=== PATIENT | female | born 1930 | race African-American/Black ===

== ENCOUNTER 2017-10-26 16:26 | Inpatient (IN) | payer OTHER ==
[2017-10-26 18:01] LABS: Absolute Lymphocytes (CBC) 1.7 K/uL (0.7-4.9); Absolute Monocytes 0.8 K/uL (0.1-1.3); Absolute Neutrophil 3.3 K/uL (1.8-8.0); Basophils % 0.7 % (0-1.3); Hematocrit 23.6 % (36.0-45.0); Lymphocytes % 28.5 % (15.3-44.8); MCH 30.3 pg (27.0-35.0); MCV 93.1 fL (80-100); MPV 10.4 fL (7.6-11.3); Monocytes % 13.8 % (3.3-12.3); RBC Red Blood Cell Count 2.54 M/uL (3.86-4.86)
--- NOTE | 2017-10-26 18:02 | EDPHYS ---
Physician Documentation [facility] Name: Ernesto Chambers Age: 87 yrs Sex: Female : 1930 Arrival Date: 10/26/2017 Time: 16:27 Bed 6 Private MD: Enrike Renae ED Physician Juarez Montiel HPI: 10/26 17:19 This 87 yrs old Black Female presents to ER via EMS with complaints of Cough. holger 17:19 The patient or guardian reports cough, difficulty breathing. Onset: The holger symptoms/episode began/occurred 3 day(s) ago. Severity of symptoms: At their worst the symptoms were mild, moderate, in the emergency department the symptoms are unchanged. Modifying factors: The symptoms are alleviated by nothing, the symptoms are aggravated by nothing. Associated signs and symptoms: Pertinent positives: fever, rhinorrhea, sore throat. The patient has not experienced similar symptoms in the past. Historical: - Allergies: 16:35 Lisinopril; sg - Home Meds: 17:44 aspirin 81 mg Oral chew 1 tab once daily [Active]; atorvastatin 20 mg oral tab 1 tab sg once daily [Active]; carvedilol 6.25 mg oral tab 1 tab every 12 hours [Active]; cholecalciferol (vitamin D3)-vitamin K2 (MK4) oral oral daily [Active]; Colace 100 mg oral cap 1 cap once daily [Active]; Coumadin 1 mg Oral tab 1 tab once daily [Active]; Coumadin 2.5 mg Oral tab 1 tab once daily [Active]; furosemide 40 mg Oral tab 1 tab 3 times per day [Active]; lactulose 20 gram/30 mL Oral soln [Active]; 19:52 levothyroxine 50 mcg tab 1 tab once daily [Active]; loratadine 10 mg oral tab 1 tab sg once daily [Active]; losartan potassium 50 mg twice a day [Active]; magnesium oxide 400 mg oral tab 400 mg daily [Active]; Milk of Magnesia 400 mg/5 mL Oral susp 30 mL every 6 hours for Constipation [Active]; Miralax 17 gram Oral pwpk 1 packet once daily [Active]; Mucinex 600 mg oral Ta12 1 tab every 12 hours [Active]; potassium chloride 20 mEq Oral TbER 1 tab 2 times per day [Active]; Protonix 40 mg oral TbEC 1 tab once daily [Active]; Tussionex Pennkinetic ER 10-100mg/5 mL Oral 10 mL every 4 hours [Active]; acetaminophen 325 mg Oral tab 2 tabs every 6 hours [Active]; Vitamin B-12 100 mcg Oral tab 100 mcg daily [Active]; - PMHx: 16:35 Anemia; Arthritis; chronic kidney disease; Hyperlipidemia; Hypertension; sg Hypothyroidism; ventricular tachycardia; - Immunization history:: Adult Immunizations up to date. - Social history:: Smoking status: unknown. ROS: 17:20 Constitutional: Negative for fever, chills, and weight loss, Eyes: Negative for injury, holger pain, redness, and discharge, ENT: Negative for injury, pain, and discharge, Neck: Negative for injury, pain, and swelling, Cardiovascular: Negative for chest pain, palpitations, and edema, Abdomen/GI: Negative for abdominal pain, nausea, vomiting, diarrhea, and constipation, Back: Negative for injury and pain, : Negative for injury, bleeding, discharge, and swelling, MS/Extremity: Negative for injury and deformity, Skin: Negative for injury, rash, and discoloration, Neuro: Negative for headache, weakness, numbness, tingling, and seizure, Psych: Negative for depression, anxiety, suicide ideation, homicidal ideation, and hallucinations, Allergy/Immunology: Negative for hives, rash, and allergies, Endocrine: Negative for neck swelling, polydipsia, polyuria, polyphagia, and marked weight changes, Hematologic/Lymphatic: Negative for swollen nodes, abnormal bleeding, and unusual bruising. 17:20 Respiratory: Positive for cough, shortness of breath, at rest. Exam: 17:20 Constitutional: This is a well developed, well nourished patient who is awake, alert, holger and in no acute distress. Head/Face: Normocephalic, atraumatic. Eyes: Pupils equal round and reactive to light, extra-ocular motions intact. Lids and lashes normal. Conjunctiva and sclera are non-icteric and not injected. Cornea within normal limits. Periorbital areas with no swelling, redness, or edema. ENT: Nares patent. No nasal discharge, no septal abnormalities noted. Tympanic membranes are normal and external auditory canals are clear. Oropharynx with no redness, swelling, or masses, exudates, or evidence of obstruction, uvula midline. Mucous membranes moist. Neck: Trachea midline, no thyromegaly or masses palpated, and no cervical lymphadenopathy. Supple, full range of motion without nuchal rigidity, or vertebral point tenderness. No Meningismus. Chest/axilla: Normal chest wall appearance and motion. Nontender with no deformity. No lesions are appreciated. Cardiovascular: Regular rate and rhythm with a normal S1 and S2. No gallops, murmurs, or rubs. Normal PMI, no JVD. No pulse deficits. Abdomen/GI: Soft, non-tender, with normal bowel sounds. No distension or tympany. No guarding or rebound. No evidence of tenderness throughout. Back: No spinal tenderness. No costovertebral tenderness. Full range of motion. Skin: Warm, dry with normal turgor. Normal color with no rashes, no lesions, and no evidence of cellulitis. 17:20 Respiratory: mild respiratory distress is noted, Respirations: normal, no acute changes, Breath sounds: decreased breath sounds, rhonchi, wheezing: inspiratory expiratory Vital Signs: 16:32 BP 144 / 108; Pulse 58 MON; Resp 17 S; Pulse Ox 100% on R/A; Pain 8/10; sg 16:35 Temp 99.3; sg 17:40 BP 128 / 70; Pulse 60; Resp 17; Temp 99.3; Pulse Ox 99% on R/A; Pain 0/10; sg 18:40 BP 112 / 77; Pulse 60; Resp 18 S; Pulse Ox 100% on R/A; Pain 0/10; sg 19:30 BP 108 / 77; Pulse 62; Resp 17; Pulse Ox 100% ; Pain 0/10; tl1 19:55 Temp 98.2; tl1 Procedures: 17:23 Peripheral line: by aseptic technique a peripheral line was placed in the left external holger jugular vein. MDM: 16:35 Patient medically screened. [facility] 17:23 Data reviewed: vital signs, nurses notes, lab test result(s), EKG, radiologic studies, [facility] plain films. 10/26 16:37 Order name: Basic Metabolic Panel [facility] 10/26 16:37 Order name: BNP [facility] 10/26 16:37 Order name: CBC with Diff; Complete Time: 18:22 [facility] 10/26 16:37 Order name: Ckmb [facility] 10/26 16:37 Order name: CPK [facility] 10/26 16:37 Order name: LFT's [facility] 10/26 16:37 Order name: Magnesium [facility] 10/26 16:37 Order name: PT-INR [facility] 10/26 16:37 Order name: Ptt, Activated [facility] 10/26 16:37 Order name: Troponin (emerg Dept Use Only) [facility] 10/26 16:37 Order name: Lipase [facility] 10/26 16:37 Order name: Blood Culture Adult (2) [facility] 10/26 16:37 Order name: Procalcitonin [facility] 10/26 16:37 Order name: Flu; Complete Time: 18:22 [facility] 10/26 16:37 Order name: XRAY Chest (1 view); Complete Time: 18:12 [facility] 10/26 16:37 Order name: EKG; Complete Time: 16:38 [facility] 10/26 16:37 Order name: Cardiac monitoring; Complete Time: 17:28 [facility] 10/26 16:37 Order name: EKG - Nurse/Tech; Complete Time: 19:44 [facility] 10/26 16:37 Order name: IV Saline Lock; Complete Time: 17:28 [facility] 10/26 16:37 Order name: Labs collected and sent; Complete Time: 17:28 [facility] 10/26 16:37 Order name: Urine Culture [facility] 10/26 16:37 Order name: Sputum Culture [facility] 10/26 16:37 Order name: Basic Metabolic Panel [facility]DC 10/26 18:14 Order name: Type And Screen [facility] 10/26 20:37 Order name: Type and Screen [facility] 10/26 16:37 Order name: O2 Per Protocol; Complete Time: 17:28 [facility] 10/26 16:37 Order name: O2 Sat Monitoring; Complete Time: 17:28 [facility] 10/26 17:24 Order name: Toure; Complete Time: 19:30 [facility] Administered Medications: 19:00 Drug: Tylenol 650 mg Route: PO; sg 19:56 Follow up: Response: No adverse reaction tl1 19:00 Drug: Rocephin - (cefTRIAXone) 2 grams Route: IVPB; Infused Over: 30 mins; Site: right sg forearm; 19:15 Follow up: Response: No adverse reaction; IV Status: Completed infusion; medication sg administered slow IVP as per hospital protocol 19:15 Drug: Zithromax 500 mg Route: IVPB; Infused Over: 1 hrs; Site: right forearm; sg 19:56 Follow up: IV Status: Infusion continued upon admission tl1 19:45 Drug: Lasix 40 mg Route: IVP; Infused Over: 4 mins; Site: left jugular; tl1 19:56 Follow up: Response: No adverse reaction; No change in condition tl1 19:45 Drug: ProTONIX 40 mg Route: IVP; Infused Over: 3 mins; Site: left jugular; tl1 19:56 Follow up: Response: No adverse reaction; No change in condition tl1 Disposition: 10/26/17 18:01 Hospitalization ordered by Ming Leggett for Inpatient Admission. Preliminary diagnosis are Cough, Dyspnea, Obesity, unspecified, Cardiomegaly, Unspecified combined systolic (congestive) and diastolic (congestive) heart failure, Anemia, unspecified, Pneumonia due to other specified bacteria, Unspecified kidney failure. - Bed requested for Telemetry/MedSurg (Inpatient). - Status is Inpatient Admission. ao - Condition is Fair. - Problem is new. - Symptoms have improved. UTI on Admission? Yes Signatures: Dispatcher [employer] EDMS Morena Mendoza Steven, RN RN sg Anderson, Corey, MD MD cha Lasagna, Tonya, RN RN tl1 Jose Gutierrez RN RN ao Corrections: (The following items were deleted from the chart) 18:13 18:01 Hospitalization Ordered by Ming Leggett DO for Inpatient Admission. Preliminary holger diagnosis is Cough; Dyspnea; Obesity, unspecified; Cardiomegaly; Unspecified combined systolic (congestive) and diastolic (congestive) heart failure. Bed requested for Telemetry/MedSurg (Inpatient). Status is Inpatient Admission. Condition is Fair. Problem is new. Symptoms have improved. UTI on Admission? Yes. holger 18:14 18:13 10/26/2017 18:01 Hospitalization Ordered by Ming Leggett DO for Inpatient holger Admission. Preliminary diagnosis is Cough; Dyspnea; Obesity, unspecified; Cardiomegaly; Unspecified combined systolic (congestive) and diastolic (congestive) heart failure; Anemia, unspecified. Bed requested for Telemetry/MedSurg (Inpatient). Status is Inpatient Admission. Condition is Fair. Problem is new. Symptoms have improved. UTI on Admission? Yes. holger 18:43 18:14 10/26/2017 18:01 Hospitalization Ordered by Ming Leggett DO for Inpatient bd Admission. Preliminary diagnosis is Cough; Dyspnea; Obesity, unspecified; Cardiomegaly; Unspecified combined systolic (congestive) and diastolic (congestive) heart failure; Anemia, unspecified; Pneumonia due to other specified bacteria. Bed requested for Telemetry/MedSurg (Inpatient). Status is Inpatient Admission. Condition is Fair. Problem is new. Symptoms have improved. UTI on Admission? Yes. holger 19:01 18:43 10/26/2017 18:01 Hospitalization Ordered by Ming Leggett DO for Inpatient holger Admission. Preliminary diagnosis is Cough; Dyspnea; Obesity, unspecified; Cardiomegaly; Unspecified combined systolic (congestive) and diastolic (congestive) heart failure; Anemia, unspecified; Pneumonia due to other specified bacteria. Bed requested for Telemetry/MedSurg (Inpatient). Status is Inpatient Admission. Condition is Fair. Problem is new. Symptoms have improved. UTI on Admission? Yes. bd 20:42 19:01 10/26/2017 18:01 Hospitalization Ordered by Ming Legegtt DO for Inpatient ao Admission. Preliminary diagnosis is Cough; Dyspnea; Obesity, unspecified; Cardiomegaly; Unspecified combined systolic (congestive) and diastolic (congestive) heart failure; Anemia, unspecified; Pneumonia due to other specified bacteria; Unspecified kidney failure. Bed requested for Telemetry/MedSurg (Inpatient). Status is Inpatient Admission. Condition is Fair. Problem is new. Symptoms have improved. UTI on Admission? Yes. holger
--- NOTE | 2017-10-26 18:02 | ER ---
Nurse's Notes [facility] Name: Ernesto Chambers Age: 87 yrs Sex: Female : 1930 Arrival Date: 10/26/2017 Time: 16:27 Bed 6 Private MD: Enrike Renae Diagnosis: Cough;Dyspnea;Obesity, unspecified;Cardiomegaly;Unspecified combined systolic (congestive) and diastolic (congestive) heart failure;Anemia, unspecified;Pneumonia due to other specified bacteria;Unspecified kidney failure Presentation: 10/26 16:29 Presenting complaint: EMS states: pt reports a cough for 2-3 days, xray report sg indicates infiltrate noted to right upper lobe, pt reports urinary frequency and malodorous urine for 2-3 days, pt is a resident of [facility]. Transition of care: patient was received from another setting of care (long-term care facility), [facility]. Onset of symptoms was October 26, 2017. Initial Sepsis Screen: Does the patient meet any 2 criteria? No. Patient's initial sepsis screen is negative. Does the patient have a suspected source of infection? Yes: Productive cough/pneumonia Dysuria/Frequency/Urgency/UTI. Care prior to arrival: None. 16:29 Method Of Arrival: EMS: [facility] 16:29 Acuity: VERITO 3 sg Historical: - Allergies: 16:35 Lisinopril; sg - Home Meds: 17:44 aspirin 81 mg Oral chew 1 tab once daily [Active]; atorvastatin 20 mg oral tab 1 tab sg once daily [Active]; carvedilol 6.25 mg oral tab 1 tab every 12 hours [Active]; cholecalciferol (vitamin D3)-vitamin K2 (MK4) oral oral daily [Active]; Colace 100 mg oral cap 1 cap once daily [Active]; Coumadin 1 mg Oral tab 1 tab once daily [Active]; Coumadin 2.5 mg Oral tab 1 tab once daily [Active]; furosemide 40 mg Oral tab 1 tab 3 times per day [Active]; lactulose 20 gram/30 mL Oral soln [Active]; 19:52 levothyroxine 50 mcg tab 1 tab once daily [Active]; loratadine 10 mg oral tab 1 tab sg once daily [Active]; losartan potassium 50 mg twice a day [Active]; magnesium oxide 400 mg oral tab 400 mg daily [Active]; Milk of Magnesia 400 mg/5 mL Oral susp 30 mL every 6 hours for Constipation [Active]; Miralax 17 gram Oral pwpk 1 packet once daily [Active]; Mucinex 600 mg oral Ta12 1 tab every 12 hours [Active]; potassium chloride 20 mEq Oral TbER 1 tab 2 times per day [Active]; Protonix 40 mg oral TbEC 1 tab once daily [Active]; Tussionex Pennkinetic ER 10-100mg/5 mL Oral 10 mL every 4 hours [Active]; acetaminophen 325 mg Oral tab 2 tabs every 6 hours [Active]; Vitamin B-12 100 mcg Oral tab 100 mcg daily [Active]; - PMHx: 16:35 Anemia; Arthritis; chronic kidney disease; Hyperlipidemia; Hypertension; sg Hypothyroidism; ventricular tachycardia; - Immunization history:: Adult Immunizations up to date. - Social history:: Smoking status: unknown. Screenin:40 Abuse screen: Denies threats or abuse. Denies injuries from another. Nutritional sg screening: No deficits noted. Tuberculosis screening: No symptoms or risk factors identified. Never had TB. Fall Risk No fall in past 12 months (0 pts). Mental Status- Overestimates/Forgets Limitations (15 pts.). Total Jonas Fall Scale indicates Low Risk Score (25-44 pts). Side Rails Up X 2 Placed close to Nursing Station Frequent Obs/Assesments occuring. Pneumonia Screening: Non.Productive Cough (2pts), Chronic Respiratory/Lung Disease (3pts), Bed-Ridden/Decreased Mobility (3pts), SALVADOR/NH Resident (2pts), Total Score: 3 Pts. or > (High Risk). Assessment: 16:40 General: Appears in no apparent distress. comfortable, obese, unkempt, well developed, sg well nourished, Behavior is cooperative, appropriate for age, Smells of urine. Pain: Complains of pain in suprapubic area Pain currently is 6 out of 10 on a pain scale. Quality of pain is described as crampy, Current management is with Tylenol, is partially effective. Neuro: Level of Consciousness is awake, obeys commands, confused, Oriented to person, place, Scientific Research Associate are equal bilaterally Speech is normal, Facial symmetry appears normal. Cardiovascular: Heart tones S1 S2 present Capillary refill is brisk in bilateral fingers Patient's skin is warm and dry. Chest pain is denied. Respiratory: Airway is patent Respiratory effort is even, unlabored, Respiratory pattern is regular, symmetrical, Breath sounds with crackles in left posterior lower lobe and right posterior middle lobe. Respiratory: Reports cough that is non-productive, hacking, persistent. GI: No signs and/or symptoms were reported involving the gastrointestinal system. : Reports incontinence, pain in suprapubic area urinary frequency. EENT: No signs and/or symptoms were reported regarding the EENT system. Derm: Skin is intact, is thin, Skin is dry, Skin is normal, Skin temperature is warm. Musculoskeletal: Circulation, motion, and sensation intact. Swelling absent. 17:40 Reassessment: Patient appears in no apparent distress at this time. 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 18:40 Reassessment: Patient appears in no apparent distress at this time. Patient and/or sg family updated on plan of care and expected duration. Pain level reassessed. Patient is alert, oriented x 3, equal unlabored respirations, skin warm/dry/pink. awaiting lab results at this time, pt stated understanding, pt daughter stated understanding, educated pt on the provider order for indwelling adkins cath, pt stated understanding, pt daughter states " she has a prolapsed uterus, and several providers have tried to insert the adkins with no success." notified, orders received for adkins placement at this time. 19:57 Reassessment: Patient and/or family updated on plan of care and expected duration. Pain tl1 level reassessed. Patient is alert, oriented x 3, equal unlabored respirations, skin warm/dry/pink. Report called to Nely JOEL. Vital Signs: 16:32 BP 144 / 108; Pulse 58 MON; Resp 17 S; Pulse Ox 100% on R/A; Pain 8/10; sg 16:35 Temp 99.3; sg 17:40 BP 128 / 70; Pulse 60; Resp 17; Temp 99.3; Pulse Ox 99% on R/A; Pain 0/10; sg 18:40 BP 112 / 77; Pulse 60; Resp 18 S; Pulse Ox 100% on R/A; Pain 0/10; sg 19:30 BP 108 / 77; Pulse 62; Resp 17; Pulse Ox 100% ; Pain 0/10; tl1 19:55 Temp 98.2; tl1 ED Course: 16:27 Patient arrived in ED. sg 16:29 Enrike Renae is Private Physician. sg 16:31 Triage completed. sg 16:31 Arm band placed on. sg 16:35 Juarez Montiel MD is Attending Physician. holger 17:00 Patient has correct armband on for positive identification. Bed in low position. Call sg light in reach. Side rails up X2. groundwater monitoring technician on. Pulse ox on. NIBP on. Head of bed elevated. 17:05 EKG done, by photovoltaic installation technician. reviewed by Juarez Montiel MD. at1 17:15 Inserted saline lock: 22 gauge in right forearm, using aseptic technique. Blood sg collected. IV inserted by military technology manager Mikey Dumont 17:27 Naren Ptahak, RN is Primary Nurse. sg 17:51 X-ray completed. Portable x-ray completed in exam room. Patient tolerated procedure kp1 well. 17:51 XRAY Chest (1 view) In Process Unspecified. EDDE 18:00 Ming Leggett DO is Hospitalizing Provider. [facility] 18:10 Inserted saline lock: 18 gauge in left EJ, using aseptic technique. IV inserted by sg . 18:11 Notified ED physician of a critical lab result(s). Hemoglobin 7.7. aa5 19:00 Repositioned patient. Cleaned of incontinence. Linen changed. sg 19:00 Adkins cath inserted, using sterile technique, 16 Fr., by me, balloon inflated, to sg gravity drainage, other no urine output noted at this time, pt reports " I just went pee a little bit ago." Patient tolerated well. 19:59 No provider procedures requiring assistance completed. Patient admitted, IV remains in tl1 place. 20:24 Primary Nurse role handed off by Naren Pathak, RN sg Administered Medications: 19:00 Drug: Tylenol 650 mg Route: PO; sg 19:56 Follow up: Response: No adverse reaction tl1 19:00 Drug: Rocephin - (cefTRIAXone) 2 grams Route: IVPB; Infused Over: 30 mins; Site: right sg forearm; 19:15 Follow up: Response: No adverse reaction; IV Status: Completed infusion; medication sg administered slow IVP as per hospital protocol 19:15 Drug: Zithromax 500 mg Route: IVPB; Infused Over: 1 hrs; Site: right forearm; sg 19:56 Follow up: IV Status: Infusion continued upon admission tl1 19:45 Drug: Lasix 40 mg Route: IVP; Infused Over: 4 mins; Site: left jugular; tl1 19:56 Follow up: Response: No adverse reaction; No change in condition tl1 19:45 Drug: ProTONIX 40 mg Route: IVP; Infused Over: 3 mins; Site: left jugular; tl1 19:56 Follow up: Response: No adverse reaction; No change in condition tl1 Intake: Outcome: 18:01 Decision to Hospitalize by Provider. holger 19:58 Admitted to Tele accompanied by tech, via stretcher, with chart, Report called to [facility] Nely JOEL 19:58 Condition: stable 19:58 Instructed on the need for admit, Demonstrated understanding of instructions. 20:42 Patient left the ED. ao Signatures: Dispatcher [employer] EDMS Naren Pathak RN RN sg Anderson, Corey, MD MD cha Calderon, Audri, RN RN Laurie ahnd, occupational therapist aide EKG Tat1 Priyanka Irvin RN RN tl1 Jose Gutierrez RN RN ao Poole, Kathy 1
[2017-10-26] MEDS ORDERED: AZITHROMYCIN 500 MG/250 ML BAG ONE (18:03)
[2017-10-26] MEDS ORDERED: CEFTRIAXONE/SWI 1gm 2 GM/20 ML SYR ONE (18:03)
[2017-10-26] MEDS ORDERED: ACETAMINOPHEN 325 MG TABLET ONE (18:04)
--- NOTE | 2017-10-26 18:05 | RAD REPORT ---
EXAM DESCRIPTION: RAD - Chest Single View - 10/26/2017 5:56 pm CLINICAL HISTORY: Cough, shortness of breath COMPARISON: 05/20/2017 FINDINGS: Portable technique limits examination quality. Mild interstitial pulmonary edema is noted. The heart is mildly enlarged in size. No displaced fractu res. IMPRESSION: Mild CHF versus volume overload pattern.
[2017-10-26 18:18] LABS: Potassium 4.3 mEq/L (3.6-5.0)
[2017-10-26 18:24] LABS: Albumin 3.3 g/dL (3.2-5.5); Bilirubin Direct 0.1 mg/dL (0-0.2); Bilirubin Total 0.5 mg/dL (0.3-1.2); Magnesium 2.3 mg/dL (1.8-2.5); Protein, Total 7.5 g/dL (6.0-8.3)
[2017-10-26] MEDS ORDERED: ACETAMINOPHEN 500 MG TAB PO PRN (18:30)
[2017-10-26] MEDS ORDERED: ACETAMINOPHEN 650MG/RECT SUPP PR PRN (18:30)
[2017-10-26] MEDS ORDERED: ONDANSETRON 4 MG/2 ML VIAL IV PRN (18:30)
--- NOTE | 2017-10-26 18:43 | P.HP ---
Certification for Inpatient Patient admitted to: Inpatient With expected LOS: >2 Midnights Patient will require the following post-hospital care: Other Practitioner: I am a practitioner with admitting privileges, knowledge of patient current condition, hospital course, and medical plan of care. Services: Services provided to patient in accordance with Admission requirements found in Title 42 Section 412.3 of the Code of Federal Regulations Patient History Date of Service: 10/26/17 Primary Care Provider: care home; Nephrology-Dr. Jamison Reason for admission: Shortness of breath, cough History of Present Illness: 87-year-old female presented to the ER with shortness of breath and cough. Patient has noticed increasing shortness of breath and cough over the last 2 days. She denies any fever, chills. Cough is not productive. Patient denies any chest pain Patient reports some mild edema to the lower extremities. Patient has history of diastolic congestive heart failure, anemia of chronic disease, chronic renal disease, hypertension, hypothyroidism, mild aortic stenosis. Fluids have been [facility] at the detention. She is taking diuretic therapy. She also takes Coumadin for history of DVT. Patient was sent to the ER for further evaluation. In the of the patient was evaluated. Hemoglobin 7.7, white count 6.0. Sodium 148 com potassium 4.3, BUN of 52, creatinine 2.2 with a GFR of 25. Glucose 93. Chest x-ray showed volume overload. Influenza test negative. Due to nature of her findings the patient was admitted for further evaluation and treatment. In the ER the patient had a productive cough. She did not appear in any significant distress. Room-air saturations were about 100% on room air. Patient was slightly edematous. Family-1st cousin was at bedside. Allergies lisinopril Allergy (Verified 05/19/17 14:21) Shortness of breath Home medications list reviewed: Yes Home Medications: Acetaminophen [Tylenol] 1 tab PO Q6HR PRN 05/19/17 Aspirin [Low Dose Aspirin EC] 81 mg PO DAILY 05/19/17 Cyanocobalamin (Vitamin B-12) [Vitamin B-12] 100 mcg PO DAILY 05/19/17 Levothyroxine Sodium 50 mcg PO DAILY 05/19/17 Lubiprostone [Amitiza*] 1 cap PO BID 05/19/17 Polyethylene Glycol 3350 [Miralax] 17 gm PO DAILY 05/19/17 Potassium Oral Tab [Klor-Con 10 mEq Tab*] 1 tab PO DAILY 05/19/17 Albuterol Neb [Proventil 0.083% Neb Soln] 2.5 mg NEB [id number] #30 amp 05/24/17 Atorvastatin Calcium [Lipitor*] 20 mg PO BEDTIME #30 tab 05/24/17 Carvedilol [Coreg*] 6.25 mg PO BID #60 tab 05/24/17 Cholecalciferol (Vitamin D3) [Vitamin D 5,000 IU Cap*] 5,000 unit PO DAILY #30 cap 05/24/17 Ipratropium Neb [Atrovent*] 0.5 mg NEB [id number] #30 amp 05/24/17 Levothyroxine [Synthroid*] 0.05 mg PO [id number] #30 tablet 05/24/17 Losartan Potassium [Cozaar*] 50 mg PO BID #60 tablet 05/24/17 Magnesium Oxide [Mag 0X*] 400 mg PO BID #60 tab 05/24/17 Pantoprazole [Protonix Tab*] 40 mg PO DAILYAC #30 tab 05/24/17 Warfarin Sodium [Coumadin] 3 mg PO DAILY #30 tablet 05/24/17 Furosemide [Lasix] 40 mg PO BIDL #60 tab 05/29/17 - Past Medical/Surgical History Diabetic: No -: Hypertension -: CHF, diastolic dysfunction -: Chronic renal disease -: Anemia of chronic disease -: Hypothyroidism -: Chronic thrombosis right lower leg -: Chronic anti coagulation-Coumadin -: Former tobacco use -: Chronic constipation -: Mild aortic stenosis -: Pre diabetes -: Back surgery Psychosocial/ Personal History: The patient currently lives at a detention. She was living alone at home. Patient does not have any children. She is a . - Family History Father -: Hypertension, Kidney disease - Social History Smoking Status: Former smoker Alcohol use: No CD- Drugs: No Caffeine use: Yes Place of Residence: Shelter Review of Systems General: As per HPI Eyes: Unremarkable ENT: Unremarkable Respiratory: Cough, Shortness of Breath, SOB with Excertion, As per HPI Cardiovascular: Edema, As per HPI Gastrointestinal: Unremarkable Genitourinary: Unremarkable Musculoskeletal: Unremarkable Integumentary: Unremarkable Neurological: Unremarkable Lymphatics: Unremarkable Physical Examination - Physical Exam General: Alert, In no apparent distress, Oriented x3, Cooperative HEENT: Atraumatic, Normocephalic, PERRLA, Other (Mild erythema to the oral region) Neck: Supple, No Thyromegaly Respiratory: Crackles/rales (Bilateral) Cardiovascular: Normal pulses, Regular rate/rhythm Gastrointestinal: Normal bowel sounds, Soft and benign, Non-distended, No tenderness, No masses, No rebound, No guarding Musculoskeletal: No erythema, No tenderness, No warmth Integumentary: No erythema, No warmth, No cyanosis, Tenderness/swelling (Mild pitting edema to the lower extremities bilateral) Neurological: Normal speech, Normal strength at 5/5 x4 extr, Normal tone, Normal affect Lymphatics: No axilla or inguinal lymphadenopathy - Studies Laboratory Data (last 24 hrs) 10/26/17 17:20: WBC 6.0, Hgb 7.7 L*, Hct 23.6 L, Plt Count 175 10/26/17 17:20: Sodium 148 H, Potassium 4.3, BUN 52 H, Creatinine 2.27 H, Glucose 93, Magnesium 2.3, Total Bilirubin 0.5, AST 17, ALT 12, Alkaline Phosphatase 77, Lipase 13 L Microbiology Data (last 24 hrs): 10/26/17 17:48 Nasopharnyx Influenza Type A Antigen Screen - Final 10/26/17 17:48 Nasopharnyx Influenza Type B Antigen Screen - Final Assessment and Plan - Problems (Diagnosis) (1) Hyperlipidemia Current Visit: Yes Status: Chronic Plan: Will continue with her medication. Qualifiers: Hyperlipidemia type: unspecified Qualified Code(s): E78.5 - Hyperlipidemia , unspecified (2) CHF (congestive heart failure) Onset Date: 05/22/17 Current Visit: No Status: Acute Plan: X-ray shows volume overload. Likely acute on chronic diastolic dysfunction. Previous echocardiogram shows also mild aortic stenosis. Will start IV Lasix 40 mg b.i.d.. Will continue with a 1500 cc per day fluid restriction. Will recheck echocardiogram. Will monitor closely. Qualifiers: Heart failure type: diastolic Heart failure chronicity: acute on chronic Qualified Code(s): I50.33 - Acute on chronic diastolic (congestive) heart failure (3) Chronic renal disease Onset Date: 05/22/17 Current Visit: No Status: Acute Plan: Acute on chronic renal disease. Nephrology will be consulted. Patient with mild hypernatremic. Will discuss with nephrology. Patient will be getting diuretic therapy due to congestive heart failure. Qualifiers: Chronic kidney disease stage: stage 3 (moderate) (4) Dyspnea Onset Date: 05/22/17 Current Visit: No Status: Acute Plan: Likely from fluid overload. Will continue as above. Will order echocardiogram to further assess previous CHF and aortic stenosis. Qualifiers: (5) Anemia Onset Date: 05/22/17 Current Visit: No Status: Chronic Plan: Patient with anemia of chronic disease likely from renal disease. Patient also with B12 deficiency. Will monitor hemoglobin closely. Patient may require transfusion if less than 7.0. Qualifiers: Anemia type: due to chronic kidney disease Chronic kidney disease stage: stage 3 (moderate) Qualified Code(s): N18.3 - Chronic kidney disease, stage 3 (moderate); D63.1 - Anemia in chronic kidney disease (6) Chronic anticoagulation Onset Date: 05/22/17 Current Visit: No Status: Chronic Plan: Will need to verify Coumadin medication. Patient taking chronic anti coagulation therapy due to previous DVT. (7) History of DVT (deep vein thrombosis) Onset Date: 05/22/17 Current Visit: No Status: Chronic Plan: Will need to continue with her medication. (8) Hypothyroidism Onset Date: 05/22/17 Current Visit: No Status: Chronic Plan: Will continue with her medication. Will check tsh. Qualifiers: (9) Obesity Onset Date: 05/22/17 Current Visit: No Status: Chronic Plan: Will address lifestyle modification education. Qualifiers: (10) Aortic stenosis Current Visit: Yes Status: Acute Plan: Previous echocardiogram shows mild aortic stenosis. Will recheck echocardiogram to further evaluate. Qualifiers: Cardiac valve disease etiology: etiology unspecified Qualified Code(s): I35.0 - Nonrheumatic aortic (valve) stenosis (11) Hypernatremia Current Visit: Yes Status: Acute Plan: Will have nephrology evaluate. Discharge Plan: Shelter Plan to discharge in: Greater than 2 days - Advance Directives Does patient have a Living Will: No Does patient have a Durable POA for Healthcare: No - Code Status/Comfort Care Code Status Assessed: Yes (This was addressed in detail with family present) Time Spent Managing Pts Care (In Minutes): 55
[2017-10-26] MEDS ORDERED: PANTOPRAZOLE 40 MG INJ ONE (19:32)
[2017-10-26] MEDS ORDERED: FUROSEMIDE 40 MG/4 ML VIAL ONE (19:32)
[2017-10-26 19:59] LABS: Protime INR 3.94
[2017-10-26 20:05] LABS: CKMB Creatine Kinase MB 1.2 ng/ml (0.3-4.0)
[2017-10-26] MEDS: ATORVASTATIN 20 MG TAB PO SCH (22:29)
[2017-10-26] MEDS ORDERED: D5W 1,000 ML IV SCH (23:00)
[2017-10-27 05:25] LABS: Absolute Lymphocytes (CBC) 1.6 K/uL (0.7-4.9); Absolute Monocytes 0.9 K/uL (0.1-1.3); Absolute Neutrophil 3.1 K/uL (1.8-8.0); Basophils % 0.9 % (0-1.3); Eosinophils % 2.1 % (0-4.4); Hematocrit 24.3 % (36.0-45.0); Lymphocytes % 28.1 % (15.3-44.8); MCH 29.6 pg (27.0-35.0); MCV 93.8 fL (80-100); MPV 10.7 fL (7.6-11.3); RBC Red Blood Cell Count 2.59 M/uL (3.86-4.86)
[2017-10-27] MEDS: LEVOTHYROXINE SOD 0.05 MG TABLET PO SCH (05:35)
[2017-10-27 05:37] LABS: Protime INR 3.88
[2017-10-27 05:45] LABS: CKMB Creatine Kinase MB 1.7 ng/ml (0.3-4.0)
[2017-10-27] MEDS ORDERED: CARVEDILOL 3.125 MG TAB PO SCH (06:00)
[2017-10-27 06:19] LABS: Magnesium 2.2 mg/dL (1.8-2.5); Potassium 3.6 mEq/L (3.6-5.0); Thyroid Stimulating Hormone 1.75 uIU/mL (0.34-5.60)
[2017-10-27] MEDS ORDERED: POTASSIUM CL SA 10 MEQ TAB PO ONE (06:27)
[2017-10-27] MEDS ORDERED: LACTULOSE 20 GM/30 ML UCUP PO PRN (07:20)
[2017-10-27] MEDS ORDERED: PANTOPRAZOLE 40MG TABLET PO SCH (07:30)
--- NOTE | 2017-10-27 08:02 | P.PN ---
Subjective Date of Service: 10/27/17 Primary Care Provider: [facility]; Nephrology-Dr. Jamison Chief Complaint: Shortness of breath, cough Subjective: Improving (Cough and shortness of breath improved.) Physical Examination - Vital Signs Temperature: 97.3 F Blood Pressure: 176/74 Pulse: 59 Respirations: 20 Pulse Ox (%): 97 - Physical Exam General: Alert, In no apparent distress, Oriented x3, Cooperative HEENT: Atraumatic Neck: Supple Respiratory: Crackles/rales (Less crackles to the bases.) Cardiovascular: Normal pulses, Regular rate/rhythm Gastrointestinal: Normal bowel sounds, Soft and benign, Non-distended, No tenderness, No masses, No rebound, No guarding Musculoskeletal: No erythema, No tenderness, No warmth Integumentary: Tenderness/swelling (Edema to the lower extremities improved.) Neurological: Normal speech, Normal strength at 5/5 x4 extr, Normal tone, Normal affect - Studies Laboratory Data (last 24 hrs) 10/26/17 17:20: WBC 6.0, Hgb 7.7 L*, Hct 23.6 L, Plt Count 175 10/26/17 17:20: B-Natriuretic Peptide 488 H 10/26/17 17:20: Sodium 148 H, Potassium 4.3, BUN 52 H, Creatinine 2.27 H, Glucose 93, Magnesium 2.3, Total Bilirubin 0.5, AST 17, ALT 12, Alkaline Phosphatase 77, Lipase 13 L Microbiology Data (last 24 hrs): 10/26/17 17:48 Nasopharnyx Influenza Type A Antigen Screen - Final 10/26/17 17:48 Nasopharnyx Influenza Type B Antigen Screen - Final Medications List Reviewed: Yes Assessment & Plan - Problems (Diagnosis) (1) Hyperlipidemia Current Visit: Yes Status: Chronic Plan: Will continue with her medication. Qualifiers: Hyperlipidemia type: unspecified Qualified Code(s): E78.5 - Hyperlipidemia , unspecified (2) CHF (congestive heart failure) Onset Date: 05/22/17 Current Visit: No Status: Acute Plan: Will recheck x-ray again today. Will continue with IV Lasix. Will continue with fluid restriction. Await echocardiogram results. Will discuss with nephrology. Will physical therapy assess ambulation. Anticipate discharge in the next 1-2 day Qualifiers: Heart failure type: diastolic Heart failure chronicity: acute on chronic Qualified Code(s): I50.33 - Acute on chronic diastolic (congestive) heart failure (3) Chronic renal disease Onset Date: 05/22/17 Current Visit: No Status: Acute Plan: Acute on chronic renal disease. Patient was given some IV fluids last night. Hypernatremia resolved. Will continue with treatment for CHF. Will discuss with nephrology. Qualifiers: Chronic kidney disease stage: stage 3 (moderate) (4) Dyspnea Onset Date: 05/22/17 Current Visit: No Status: Acute Plan: Likely from fluid overload. Will continue as above. Patient on IV Lasix. Recheck chest x-ray. Wean off oxygen. Qualifiers: (5) Anemia Onset Date: 05/22/17 Current Visit: No Status: Chronic Plan: Patient with anemia of chronic disease likely from renal disease. Patient also with B12 deficiency. Hemoglobin stable this time. Will monitor hemoglobin closely. Patient may require transfusion if less than 7.0. Qualifiers: Anemia type: due to chronic kidney disease Chronic kidney disease stage: stage 3 (moderate) Qualified Code(s): N18.3 - Chronic kidney disease, stage 3 (moderate); D63.1 - Anemia in chronic kidney disease (6) Chronic anticoagulation Onset Date: 05/22/17 Current Visit: No Status: Chronic Plan: Will continue with her Coumadin. Patient taking Coumadin due to previous DVT. Will hold Coumadin if INR greater than 3.0 (7) History of DVT (deep vein thrombosis) Onset Date: 05/22/17 Current Visit: No Status: Chronic Plan: Continue as above (8) Hypothyroidism Onset Date: 05/22/17 Current Visit: No Status: Chronic Plan: Will continue with her medication. Qualifiers: (9) Obesity Onset Date: 05/22/17 Current Visit: No Status: Chronic Plan: Will address lifestyle modification education. Qualifiers: Obesity type: due to excess calories Obesity classification: adult class 2 (BMI 35 - 39.9) Serious obesity comorbidity presence: with serious comorbidity Body mass index: BMI 35.0-35.9 Qualified Code(s): E66.01 - Morbid (severe) obesity due to excess calories; Z68.35 - Body mass index (BMI) 35.0-35.9, adult (10) Aortic stenosis Current Visit: Yes Status: Acute Plan: Previous echocardiogram shows mild aortic stenosis. Will recheck echocardiogram to further evaluate. Qualifiers: Cardiac valve disease etiology: etiology unspecified Qualified Code(s): I35.0 - Nonrheumatic aortic (valve) stenosis (11) Hypernatremia Current Visit: Yes Status: Acute Plan: Patient given IV fluids last night. Will monitor closely. Discharge Plan: Half-Way Plan to discharge in: 24 Hours Time Spent Managing Pts Care (In Minutes): 55
--- NOTE | 2017-10-27 08:39 | RAD REPORT ---
EXAM DESCRIPTION: RAD - Chest Single View - 10/27/2017 6:35 am CLINICAL HISTORY: CHF COMPARISON: 10/26/2017 FINDINGS: Portable technique limits examination quality. Little overall change is seen in the mild interstitial prominence, likely representing mild interstit ial pulmonary edema. The heart is mildly to moderately enlarged. No displaced fractures. IMPRESSION: Stable chest since 10/26/2017.
[2017-10-27] MEDS ORDERED: WARFARIN SODIUM 2.5 MG TAB PO SCH ×2 (09:00→17:00)
[2017-10-27] MEDS ORDERED: HOME MED 1 EA UNK (Cyanocobalamin (Vitamin B-12) [Vitamin B-12] 1 TAB) PO SCH (09:00)
[2017-10-27] MEDS ORDERED: WARFARIN SODIUM 1 MG TAB PO SCH ×2 (09:00→17:00)
[2017-10-27] MEDS: VITAMIN D 5,000 UNIT CAP PO SCH (09:40)
[2017-10-27] MEDS: FUROSEMIDE 40 MG/4 ML VIAL IV SCH ×2 (09:40→17:08)
[2017-10-27] MEDS: CYANOCOBALAMIN 1,000 MCG TAB PO SCH (09:41)
[2017-10-27] MEDS: LOSARTAN POTASSIUM 50 MG TABLET PO SCH ×2 (09:41→21:18)
[2017-10-27] MEDS: DOCUSATE NA 100 MG CAP PO SCH (09:41)
[2017-10-27] MEDS: ASPIRIN EC 81 MG TAB PO SCH (09:41)
[2017-10-27] MEDS: PANTOPRAZOLE 40MG TABLET PO SCH ×2 (09:41→21:18)
[2017-10-27] MEDS: LORATADINE 10 MG TAB PO SCH (09:41)
--- NOTE | 2017-10-27 10:30 | EKG ---
Test Date: 2017-10-26 Test Time: 16:40:59 Separator Tender: ZANDRA MEASUREMENT RESULTS: Intervals: Rate: 57 SD: 182 QRSD: 78 QT: 410 QTc: 399 Clever: P: 86 SD: 182 QRS: 22 T: 59 INTERPRETIVE STATEMENTS: Sinus bradycardia Otherwise normal ECG Compared to ECG 05/19/2017 10:48:52 Sinus rhythm no longer present Electronically Signed On 10-27-17 10:27:21 CDT by Danny Posada
--- NOTE | 2017-10-27 14:19 | P.CNS ---
Date of Consult: 10/27/17 Reason for Consult: ROYA/ Hypernatremia. Requesting Physician: Ming Leggett Primary Care Provider: care home; Nephrology-Dr. Jamison Chief Complaint: Shortness of breath, cough History of Present Illness: 87-year-old female presented to the ER with shortness of breath and cough. Patient has noticed increasing shortness of breath and cough over the last 2 days. She denies any fever, chills. Cough is not productive. Patient denies any chest pain Patient reports some mild edema to the lower extremities. Patient has history of diastolic congestive heart failure, anemia of chronic disease, chronic renal disease, hypertension, hypothyroidism, mild aortic stenosis. Fluids have been adjusted at the [place] [facility]. She is taking diuretic therapy. She also takes Coumadin for history of DVT. Patient was sent to the ER for further evaluation. 17:19 This 87 yrs old Black Female presents to ER via EMS with complaints of Cough. holger 17:19 The patient or guardian reports cough, difficulty breathing. Onset: The holger symptoms/episode began/occurred 3 day(s) ago. Severity of symptoms: At their worst the symptoms were mild, moderate, in the emergency department the symptoms are unchanged. Modifying factors: The symptoms are alleviated by nothing, the symptoms are aggravated by nothing. Associated signs and symptoms: Pertinent positives: fever, rhinorrhea, sore throat. The patient has not experienced similar symptoms in the past. Allergies lisinopril Allergy (Mild, Verified 10/26/17 22:26) Shortness of breath Home medications list reviewed: Yes Home Medications: Acetaminophen [Tylenol] 2 tab PO Q6H PRN 10/27/17 Aspirin Chewable [Aspirin Chewable*] 81 mg PO DAILY 10/27/17 Atorvastatin Calcium [Lipitor] 20 mg PO BEDTIME 10/27/17 Carvedilol [Coreg] 6.25 mg PO BID 10/27/17 Cholecalciferol (Vitamin D3) [Vitamin D3] 5,000 unit PO DAILY 10/27/17 Cyanocobalamin (Vitamin B-12) [Vitamin B-12] 1 tab PO DAILY 10/27/17 Docusate [Colace Cap] 100 mg PO DAILY 10/27/17 Furosemide [Lasix] 40 mg PO TID 10/27/17 Guaifenesin [Mucinex] 600 mg PO BID MDD For 7 days 10/27/17 Guaifenesin [Tussin Mucus-Chest Congestion] 10 ml PO Q4H PRN 10/27/17 Lactulose 20 gm PO Q24H PRN 10/27/17 Levothyroxine Sodium 50 mcg PO [id number] 10/27/17 Loratadine [Claritin] 10 mg PO DAILY 10/27/17 Losartan Potassium 50 mg PO BID 10/27/17 Mag Hydroxide 8% [Milk Of Magnesia*] 30 ml PO Q6H PRN 10/27/17 Magnesium Oxide [Mag 0X*] 400 mg PO BID 10/27/17 Pantoprazole Sodium [Protonix] 40 mg PO BID 10/27/17 Polyethylene Glycol 3350 [Miralax] 17 gm PO DAILY PRN 10/27/17 Potassium Chloride 20 meq PO BID 10/27/17 Warfarin Sodium [Coumadin] 1 mg PO DAILY 10/27/17 Warfarin Sodium [Coumadin] 2.5 mg PO DAILY 10/27/17 - Past Medical/Surgical History Diabetic: No -: Hypertension -: CHF, diastolic dysfunction -: Chronic renal disease -: Anemia of chronic disease -: Hypothyroidism -: Chronic thrombosis right lower leg -: Chronic anti coagulation-Coumadin -: Former tobacco use -: Chronic constipation -: Mild aortic stenosis -: Pre diabetes -: Back surgery Psychosocial/ Personal History: The patient currently lives at a [place] [facility]. She was living alone at home. Patient does not have any children. She is a . - Family History Father History Unknown: Yes Medical History: Hypertension, Kidney disease - Social History Smoking Status: Unknown if ever smoked Alcohol use: No CD- Drugs: No Caffeine use: Yes Place of Residence: Detention Review of Systems 10-point ROS is otherwise unremarkable General: Weakness, Malaise Respiratory: SOB with Excertion Neurological: Weakness Physical Examination Temp Pulse Resp BP Pulse Ox 98 F 55 18 178/71 H 97 10/27/17 12:00 10/27/17 12:00 10/27/17 12:00 10/27/17 12:00 10/27/17 12:00 General: Oriented x3, Cooperative HEENT: Atraumatic Neck: Supple Respiratory: Clear to auscultation bilaterally (Coarse) Cardiovascular: Regular rate/rhythm, No rubs, Edema (Trace) Gastrointestinal: Soft and benign, Non-distended Musculoskeletal: No clubbing, No erythema Integumentary: No rashes, No cyanosis Neurological: Normal speech Laboratory Data (last 24 hrs) 10/26/17 17:20: WBC 6.0, Hgb 7.7 L*, Hct 23.6 L, Plt Count 175 10/26/17 17:20: B-Natriuretic Peptide 488 H 10/26/17 17:20: Sodium 148 H, Potassium 4.3, BUN 52 H, Creatinine 2.27 H, Glucose 93, Magnesium 2.3, Total Bilirubin 0.5, AST 17, ALT 12, Alkaline Phosphatase 77, Lipase 13 L Imagings Data: EXAM DESCRIPTION: RAD - Chest Single View - 10/27/2017 6:35 am CLINICAL HISTORY: CHF COMPARISON: 10/26/2017 FINDINGS: Portable technique limits examination quality. Little overall change is seen in the mild interstitial prominence, likely representing mild interstitial pulmonary edema. The heart is mildly to moderately enlarged. No displaced fractures. IMPRESSION: Stable chest since 10/26/2017. Conclusions/Impression: A/ ROYA/ CKD IV. Hypernatremia/ Dehydration. HTN with CKD. Diastolic CHF, chronic. Anemia in Chronic illness. P/ Continue current POC and Medications. Give D5W X2 liters. Start Nifedipine ER 30mg twice daily. No NSAIDs. AM labs. Daily weight. Thank you kindly for the consultation.
--- NOTE | 2017-10-27 15:48 | EKG ---
Test Date: 2017-10-27 Test Time: 12:37:27 Animal Caretaker Supervisor: ZANDRA MEASUREMENT RESULTS: Intervals: Rate: 58 AR: 158 QRSD: 86 QT: 446 QTc: 437 [place]: P: 78 AR: 158 QRS: 35 T: 56 INTERPRETIVE STATEMENTS: Sinus bradycardia Otherwise normal ECG Compared to ECG 10/26/2017 16:40:59 No significant changes Electronically Signed On 10-27-17 15:48:26 CDT by Sanchez García
--- NOTE | 2017-10-27 17:50 | ECHO ---
HEIGHT: 5 ft 6 in WEIGHT: 220 lb 0 oz DATE OF STUDY: 10/27/[address]: Ming Leggett DO 2-DIMENSIONAL: YES M.MODE: YES DOPPLER: YES COLOR FLOW: YES TDS: YES PORTABLE: DEFINITY: BUBBLE STUDY: DIAGNOSIS: CONGESTIVE HEART FAILURE, AORTIC STENOSIS CARDIAC HISTORY: CATHERIZATION: NO SURGERY: NO PROSTHETIC VALVE: NO PACEMAKER: NO MEASUREMENTS (cm) DIASTOLIC (NORMALS) SYSTOLIC (NORMALS) IVSd 1.2 (0.6-1.2) LA Diam 3.8 (1.9-4.0) LVEF 73% LVIDd 4.5 (3.5-5.7) LVIDs 2.6 (2.0-3.5) %FS 42% LVPWd 1.3 (0.6-1.2) Ao Diam 2.6 (2.0-3.7) 2 DIMENSIONAL ASSESSMENT: RIGHT ATRIUM: NORMAL LEFT ATRIUM: NORMAL RIGHT VENTRICLE: NORMAL LEFT VENTRICLE: NORMAL TRICUSPID VALVE: NORMAL MITRAL VALVE: MITRAL ANNULAR CALCIFICATION PULMONIC VALVE: NORMAL AORTIC VALVE: SCLEROSIS PERICARDIAL EFFUSION: NONE AORTIC ROOT: NORMAL LEFT VENTRICULAR WALL MOTION: NORMAL DOPPLER/COLOR FLOW: MILD TRICUSPID REGURGITATION. COMMENTS: MILD TRICUSPID REGURGITATION. MITRAL ANNULAR CALCIFICATION. AORTIC SCLEROSIS. NORMAL LEFT VENTRICULAR SIZE AND FUNCTION. TECHNOLOGIST: ALEXANDRIA PHILLIPS
[2017-10-27] MEDS ORDERED: CARVEDILOL 6.25 MG TAB PO SCH (18:00)
[2017-10-27] MEDS ORDERED: D5W 1,000 ML IV SCH (19:00)
[2017-10-27] MEDS: NIFEDIPINE XL 30 MG TABLET PO SCH (21:17)
[2017-10-27] MEDS: ATORVASTATIN 20 MG TAB PO SCH (21:17)
[2017-10-28 05:13] LABS: Absolute Lymphocytes (CBC) 1.4 K/uL (0.7-4.9); Absolute Monocytes 0.7 K/uL (0.1-1.3); Absolute Neutrophil 2.6 K/uL (1.8-8.0); Basophils % 0.4 % (0-1.3); Eosinophils % 3.4 % (0-4.4); Hematocrit 25.1 % (36.0-45.0); Lymphocytes % 28.9 % (15.3-44.8); MCH 30.3 pg (27.0-35.0); MCV 93.2 fL (80-100); MPV 10.5 fL (7.6-11.3); Monocytes % 13.7 % (3.3-12.3)
[2017-10-28] MEDS: LEVOTHYROXINE SOD 0.05 MG TABLET PO SCH (05:13)
[2017-10-28 05:14] LABS: Protime INR 3.68
[2017-10-28 05:23] LABS: Potassium 3.7 mEq/L (3.6-5.0)
[2017-10-28] MEDS ORDERED: POTASSIUM CL SA 10 MEQ TAB PO ONE (06:00)
[2017-10-28] MEDS: NIFEDIPINE XL 30 MG TABLET PO SCH ×2 (09:00→21:00)
[2017-10-28] MEDS: VITAMIN D 5,000 UNIT CAP PO SCH (09:43)
[2017-10-28] MEDS: LOSARTAN POTASSIUM 50 MG TABLET PO SCH ×2 (09:43→21:27)
[2017-10-28] MEDS: FUROSEMIDE 40 MG/4 ML VIAL IV SCH ×2 (09:43→16:40)
[2017-10-28] MEDS: ASPIRIN EC 81 MG TAB PO SCH (09:43)
[2017-10-28] MEDS: CYANOCOBALAMIN 1,000 MCG TAB PO SCH (09:44)
[2017-10-28] MEDS: DOCUSATE NA 100 MG CAP PO SCH (09:44)
[2017-10-28] MEDS: LORATADINE 10 MG TAB PO SCH (09:44)
[2017-10-28] MEDS: PANTOPRAZOLE 40MG TABLET PO SCH ×2 (09:45→21:27)
--- NOTE | 2017-10-28 11:39 | RAD REPORT ---
EXAM DESCRIPTION: RAD - Chest Single View - 10/28/2017 10:15 am CLINICAL HISTORY: CHF, shortness of breath COMPARISON: October 27, October 26 TECHNIQUE: AP portable chest image was obtained 1003 hours . FINDINGS: Lung volumes are similar to comparison imaging. No peripheral mass or consolidation. Vascu lature and lung markings remain mildly prominent. This mild CHF/ volume overload pattern is similar t o comparison. Mild cardiomegaly remains. Mediastinum is widened by significant rotation on this exami nation. No measurable pleural effusion and no pneumothorax. No gross bony abnormality seen. No acute aortic findings suspected. IMPRESSION: Patient continues to show a mild CHF/ volume overload pattern. Findings are stable back to at least October 26.
[2017-10-28] MEDS ORDERED: EPOETIN ALFA 4000 UNIT/1 ML VIAL SQ SCH (12:00)
--- NOTE | 2017-10-28 12:09 | P.PN ---
Date of Service: 10/28/17 patient seen/examined. bp on higher side. still with cough/wheezing. hg lower. vs stable. bp higher side with sbp 170s. lungs wheezing b/l [facility] regular (diffcult to hear due to wheezing) abd nt/nd/bs + ext trace edema a/p: ? copd/ckd/?rosa/anemia/higher bp: procrit 4000 units sq once sbp greater 150. hydralazine 10mg po now and bid for sbp greater than 150. robutussin/combivent prn. fall precautions. may need transfusion if hb not improved/worsens.
[2017-10-28] MEDS: HYDRALAZINE HCL 10 MG TABLET PO SCH (13:34)
[2017-10-28] MEDS: IPRATROPIUM BROM 0.5MG/2.5ML NEB PRN (14:14)
[2017-10-28] MEDS: ALBUTEROL 2.5 MG/3 ML NEB SOL NEB PRN (14:14)
--- NOTE | 2017-10-28 14:19 | CON ---
Date of Consultation: 10/27/2017 The patient admitted on 10/26/[address] Leggett' service. I saw the patient on 10/27/2017. Reason For Consultation: Sick sinus syndrome and bradycardia. History Of Present Illness: Mrs. Chambers is an 87-year-old black woman. She is a DNR, has a history of ventricular tachycardia in the past. She has a history of atrial fibrillation for which she take s Coumadin. She has hypertension, on lisinopril and Coreg. She has a history of CHF, anemia, and re nal insufficiency. Apparently, while she was here being treated for a pneumonia in the right upper l obe, she was noted to have a 6 second pause, asymptomatic, during her sleep. Coreg has been disconti nued. Echocardiogram is pending. The patient denied any symptoms. Allergies: LISINOPRIL. Review of Systems: Negative. Social History: Negative. Family History: Negative. Medications: At home include Coumadin, Lasix, Lipitor, Coreg, and aspirin. Physical Examination: General: She appeared in no acute distress. Vital Signs: Stable. She was in sinus rhythm. Heart rate of 68. HEENT: Negative. Neck: Supple without any bruit, lymphadenopathy, JVD, or thyromegaly. Chest: Clear to auscultation and percussion. Cardiac: Revealed a regular rhythm and rate without any murmurs, gallops, or rubs. Abdomen: Benign. Extremities: Revealed no clubbing, cyanosis, or edema. Diagnostic Data: Creatinine was 2.27. Hemoglobin was 7.7. Chest x-ray showed right upper lobe pneu monia. EKG showed sinus bradycardia. Impression And Plan: 1.Sick sinus syndrome may be exacerbated by Coreg. I agree to discontinue the Coreg. Echocardiogra m is pending. 2.Atrial fibrillation, on Coumadin. 3.Dyslipidemia, on Lipitor. 4.Congestive heart failure, on Lasix. The patient is allergic to lisinopril and should not have it with her renal insufficiency anyway. Her other problems include anemia, history of ventricular tachy cardia that was resolved, chronic systolic congestive heart failure that is stable. The patient is a do not resuscitate. NB/MODL Voice ID: [id number] Report ID: [id number]
--- NOTE | 2017-10-28 15:34 | PN ---
Ms. Chambers was seen yesterday by me because of sick sinus syndrome and bradycardia. Due to this __ . Overnight, she had normal pulses. This morning she is asymptomatic. echocardi ogram showed left ventricular hypertrophy with normal ejection fraction. We will continue her other medications including Coumadin, Lasix, Lipitor, aspirin, or antibiotics. No change in therapy otherw ise. LONGO/DOUG Voice ID: [id number] Report ID: [id number]
[2017-10-28] MEDS: guaiFENesin 100 MG/5 ML UCUP PO PRN (16:41)
[2017-10-28] MEDS: ATORVASTATIN 20 MG TAB PO SCH (21:28)
[2017-10-29] MEDS: guaiFENesin 100 MG/5 ML UCUP PO PRN ×2 (02:37→08:19)
[2017-10-29 05:04] LABS: Protime INR 2.8
[2017-10-29 05:08] LABS: Absolute Lymphocytes (CBC) 1.8 K/uL (0.7-4.9); Absolute Monocytes 0.7 K/uL (0.1-1.3); Absolute Neutrophil 3.1 K/uL (1.8-8.0); Basophils % 0.6 % (0-1.3); Eosinophils % 2.8 % (0-4.4); Hematocrit 26.6 % (36.0-45.0); MCH 30.3 pg (27.0-35.0); MCV 91.9 fL (80-100); MPV 10.3 fL (7.6-11.3); Monocytes % 12.1 % (3.3-12.3); RBC Red Blood Cell Count 2.89 M/uL (3.86-4.86)
[2017-10-29 05:23] LABS: Magnesium 2.1 mg/dL (1.8-2.5)
[2017-10-29] MEDS: LEVOTHYROXINE SOD 0.05 MG TABLET PO SCH (05:30)
[2017-10-29] MEDS: CYANOCOBALAMIN 1,000 MCG TAB PO SCH (08:19)
[2017-10-29] MEDS: PANTOPRAZOLE 40MG TABLET PO SCH (08:19)
[2017-10-29] MEDS: DOCUSATE NA 100 MG CAP PO SCH (08:19)
[2017-10-29] MEDS: LOSARTAN POTASSIUM 50 MG TABLET PO SCH (08:19)
[2017-10-29] MEDS: VITAMIN D 5,000 UNIT CAP PO SCH (08:19)
[2017-10-29] MEDS: ASPIRIN EC 81 MG TAB PO SCH (08:19)
[2017-10-29] MEDS: LORATADINE 10 MG TAB PO SCH (08:19)
[2017-10-29] MEDS: NIFEDIPINE XL 30 MG TABLET PO SCH (08:20)
[2017-10-29] MEDS: FUROSEMIDE 40 MG/4 ML VIAL IV SCH (08:20)
[2017-10-29] MEDS: ALBUTEROL 2.5 MG/3 ML NEB SOL NEB PRN (08:32)
[2017-10-29] MEDS: IPRATROPIUM BROM 0.5MG/2.5ML NEB PRN (08:32)
[2017-10-29] MEDS: HYDRALAZINE HCL 10 MG TABLET PO SCH (09:00)
[2017-10-29] MEDS ORDERED: clonazePAM 0.5 MG TAB PO PRN (13:28)
--- NOTE | 2017-10-29 19:46 | DS ---
Date of Discharge: 10/29/2017 Discharge Diagnoses: 1.Sick sinus syndrome exacerbated by Coreg. 2.Atrial fibrillation. 3.Hyperlipidemia. 4.Congestive heart failure. 5.Chronic renal insufficiency. 6.Hypertension. 7.Anemia. 8.Hyponatremia, resolved. 9.History of aortic stenosis. 10.Overweight. 11.Hypothyroidism. 12.History of deep vein thrombosis. Consult: Cardiology, Dr. Posada. Nephrology, Dr. Baez. Procedure: Chest x-ray, echocardiogram. History Of Present Illness: Please refer to Dr. Leggett history and physical admission note on 10/26. Hospital Course: Initially, the patient presented with a progressive shortness of breath and cough. Chest x-ray showed volume overload. Echocardiogram showed aortic stenosis. The patient was placed on Lasix. Cardiology consult requested. Dr. Posada evaluated the patient and they found that the p atient has sick sinus syndrome, advised to stop Coreg which we did. The patient done well. Her mirella thing improved while on Lasix and she will be discharged today in stable condition off her Coreg. Dr. Baez was consulted for her renal insufficiency and he advised that is chronic. The patient was give n Procrit 4000 units given her anemia of chronic disease. She was placed on hydralazine orally for b jamie blood pressure control. Dr. Jamison advised to add nifedipine ER 30 mg twice a day for better blood pressure control. So we will give her prescription for that. [facility] be [facility] condition. She need to follow up with primary care physician in 1 week to 2 to make sure that the blood pressure is under well control. She will also have elevated INR and h er Coumadin was placed on hold for couple of days. Today her INR down to 2.8. Discharge Condition: Stable. Discharged Diet: Cardiac. Discharge Followup: With primary care physician in 1 week to 10 days to ensure blood pressure well c ontrolled. Followup Cardiology as advised. Discharge Medication: Nifedipine XL 30 mg orally twice a day. Coumadin 3.5 mg orally once a day, sh e will be getting 2 pills one is 2.5 and the other one is 1 mg to add up for 3.5 mg a day, Tylenol 32 5 mg to 650 every 6 hours as needed, aspirin 81 mg once a day, Lipitor 20 mg once a day, vitamin D3 5 000 unit daily, vitamin B12 100 mcg daily, Colace 100 mg daily, Lasix 40 mg 3 times a day, Mucinex 60 0 mg twice a day tablet and then liquid 10 mL every 4 hours as needed, lactulose 20 g every 24 hours as needed, Synthroid 50 mcg orally once a day, loratadine 10 mg once a day, losartan 50 mg which we s topped, milk of magnesia 30 mL as needed for constipation, magnesium oxide 400 mg twice a day, Proton ix 40 mg twice a day, potassium chloride 20 mEq twice a day, MiraLAX 17 g powder pack daily as needed . Discharge Physical Examination: Vital Signs: Today, blood pressure is 141/64, respiratory rate 16, pulse 58, temperature 97.6. General: The patient is alert does not look in any distress. HEENT: Atraumatic, normocephalic. PERRLA. Oral mucosa is moist. Neck: Supple. No JVD. No carotid bruits. Chest: Clear to auscultation. Good air entry. Heart: Regular rate and rhythm. S1, S2 normal. No gallop or murmur. Abdomen: Soft, nontender. No masses. No hepatosplenomegaly. Positive bowel sounds. Extremities: No clubbing, no cyanosis. She has +1 edema. ANGELIKA/DOUG Voice ID: [id number] Report ID: [id number]
--- NOTE | 2017-10-30 11:48 | PN ---
Subjective: Currently, she is lying in bed. She looks comfortable. She has no complaints. No feve r, no chills overnight. Objective: Vital Signs: Today, blood pressure is 179/74, respiratory rate , pulse 47, tem perature 97.8, saturating 97% on room air. General: She is sleeping but arousable. Does not look in any distress. HEENT: Atraumatic, normocephalic. PERRLA. Oral mucosa moist. Neck: Supple. No JVD. Chest: Bibasilar crackles. Heart: Regular rate and rhythm. S1, S2 normal. No gallop. Slightly bradycardic. Abdomen: Soft, nontender. No masses. No hepatosplenomegaly. Positive bowel sounds. Extremities: No clubbing or cyanosis, but she has +1 edema. Neurologic: Grossly intact. Laboratory Data: Today, showed CBC was normal except for hemoglobin 8.2. Chemistry within normal ex cept for creatinine of 2.1. Troponin 0.06, peaked at 0.07. TSH 1.75. Chest x-ray today showed mild CHF, volume overload signs. Echocardiogram showed mild tricuspid regur gitation, mitral annular calcification, aortic stenosis, normal left ventricular size and function. Cardiology consult pending. Assessment And Plan: 1.Congestive heart failure. Echocardiogram showed normal left ventricular function. Chest x-ray co ntinued to show bibasilar infiltrate consistent with volume overload; the patient on IV Lasix. Cardi ology consult requested. 2.Bradycardia. The patient has aortic stenosis on echo. Cardiology consult requested and is pendin g. 3.Hypertension. Blood pressure is very high; off blood pressure medication. She is currently on ni fedipine 30 twice a day started by Renal. I will add hydralazine. 4.Hypothyroidism. TSH within normal. Continue on Synthroid 50 mcg. 5.Renal insufficiency, acute. We will appreciate Nephrology input. The patient's creatinine is bet ter at 2 today. IV hydration yesterday. Nephrology following. 6.Hyponatremia, resolved. 7.Hyperlipidemia, on statin. 8.History of lower extremity deep vein thrombosis. INR is 3.68. Coumadin on hold for now. No need for deep vein thrombosis prophylaxis. MT/JACKSONL Voice ID: [id number] Report ID: [id number]
== END 2017-10-29 14:11 | DRG 308 ==
LOC: ER 16:26 → ERHOLD 18:01 → 2ND 19:58
PROVIDERS: ADMIT Internal Medicine; ATTEND Internal Medicine
PROC: 0T9B70Z Drainage of Bladder with Drainage Device, Via Natural or Artificial Opening (ICD-10-PCS; principal; 2017-10-26)
DX: I49.5 Sick sinus syndrome (principal); I50.33 Acute on chronic diastolic (congestive) heart failure; I13.0 Hypertensive heart and chronic kidney disease with heart failure and stage 1 through stage 4 chronic kidney disease, or unspecified chronic kidney disease; E87.0 Hyperosmolality and hypernatremia; N17.9 Acute kidney failure, unspecified; N18.4 Chronic kidney disease, stage 4 (severe); E87.1 Hypo-osmolality and hyponatremia; N18.9 Chronic kidney disease, unspecified; D63.1 Anemia in chronic kidney disease; E78.5 Hyperlipidemia, unspecified; E03.9 Hypothyroidism, unspecified; E66.9 Obesity, unspecified; I35.0 Nonrheumatic aortic (valve) stenosis; R00.1 Bradycardia, unspecified; Z66 Do not resuscitate; I48.91 Unspecified atrial fibrillation; Z68.34 Body mass index [BMI] 34.0-34.9, adult; Z87.891 Personal history of nicotine dependence; Z86.718 Personal history of other venous thrombosis and embolism
CPT/HCPCS: 36415; 51702; 71045; 80048; 80061; 80076; 82550; 82553; 83690; 83735; 83880; 84145; 84439; 84443; 84484; 85025; 85610; 85730; 86850; 86900; 86901; 87040; 87070; 87205; 87804; 93005; 93306; 94640; 97163; 99285; C9113; J0456; J0696; Q4081

== ENCOUNTER 2017-10-30 10:00 | Emergency (ER) | payer OTHER ==
[2017-10-30 11:18] LABS: Absolute Lymphocytes (CBC) 1.5 K/uL (0.7-4.9); Absolute Monocytes 0.5 K/uL (0.1-1.3); Basophils % 1.1 % (0-1.3); Eosinophils % 1.9 % (0-4.4); Hematocrit 29.3 % (36.0-45.0); MCH 29.8 pg (27.0-35.0); MPV 9.9 fL (7.6-11.3); Monocytes % 8.6 % (3.3-12.3); RBC Red Blood Cell Count 3.15 M/uL (3.86-4.86)
--- NOTE | 2017-10-30 12:44 | RAD REPORT ---
EXAM DESCRIPTION: RAD - Chest Single View - 10/30/2017 11:41 am CLINICAL HISTORY: Cough COMPARISON: 10/28/2017 FINDINGS: Portable technique limits examination quality. The lungs are grossly clear. No finding suspicious for TB is seen. The heart is upper limit of normal in size. No displaced fractures. IMPRESSION: No acute intrathoracic process suspected.
--- NOTE | 2017-10-30 12:48 | EDPHYS ---
Physician Documentation [facility] Name: Ernesto Chambers Age: 87 yrs Sex: Female : 1930 Arrival Date: 10/30/2017 Time: 10:03 Bed 30 Private MD: ED Physician Smith Graff HPI: 10/30 11:04 This 87 yrs old Black Female presents to ER via EMS with complaints of RULE OUT TB. rn 11:04 The patient or guardian reports cough. Onset: The symptoms/episode began/occurred at an rn unknown time. Severity of symptoms: At their worst the symptoms were mild, in the emergency department the symptoms are unchanged. Associated signs and symptoms: The patient has no apparent associated signs or symptoms, Pertinent negatives: fever. The patient has not experienced similar symptoms in the past. Per report, sent to rule out TB, had positive Tspot test 4 days ago, no fever, + non-productive cough, no sob. Pt unknown if previous TB.. Historical: - Allergies: 10:11 Lisinopril; aj - Home Meds: 10:11 acetaminophen 325 mg Oral tab 2 tabs every 6 hours [Active]; Amitiza 24 mcg Oral cap 1 aj cap 2 times per day [Active]; aspirin 81 mg Oral TbEC 1 tab once daily [Active]; atorvastatin 20 mg Oral tab 1 tab once daily [Active]; carvedilol 6.25 mg Oral tab 1 tab 2 times per day [Active]; cholecalciferol (vitamin D3)-vitamin K2 (MK4) Oral daily [Active]; Colace 100 mg Oral cap 1 cap once daily [Active]; Coumadin 4 mg Oral tab 1 tab once daily [Active]; Coumadin 1 mg Oral tab 1 tab once daily [Active]; Coumadin 2.5 mg Oral tab 1 tab once daily [Active]; furosemide 20 mg Oral tab 1 tab once daily [Active]; furosemide 40 mg Oral tab 1 tab 3 times per day [Active]; Klor-Con 10 10 mEq Oral TbER 1 tab once daily [Active]; lactulose 20 gram/30 mL Oral soln [Active]; levothyroxine 50 mcg tab 1 tab once daily [Active]; loratadine 10 mg Oral tab 1 tab once daily [Active]; losartan 50 mg Oral tab 1 tab 2 times per day [Active]; lovastatin 40 mg Oral tab 1 tab once daily [Active]; magnesium oxide 400 mg Oral tab 400 mg daily [Active]; Milk of Magnesia 400 mg/5 mL Oral susp 30 mL every 6 hours for constipation [Active]; Miralax 17 gram Oral pwpk 1 packet once daily [Active]; Mucinex 600 mg Oral Ta12 1 tab every 12 hours [Active]; potassium chloride 20 mEq Oral TbER 1 tab 2 times per day [Active]; Protonix 40 mg Oral TbEC 1 tab once daily [Active]; Vitamin B-12 100 mcg Oral tab 100 mcg daily [Active]; - PMHx: 10:11 Anemia; Arthritis; chronic kidney disease; Hyperlipidemia; Hypertension; aj Hypothyroidism; ventricular tachycardia; - Immunization history:: Adult Immunizations unknown. - Social history:: Smoking status: Patient/guardian denies using tobacco. - Family history:: not pertinent. - Hospitalizations: : No recent hospitalization is reported. ROS: 11:04 Constitutional: Negative for fever, chills, and weight loss, Eyes: Negative for injury, rn pain, redness, and discharge, Neck: Negative for injury, pain, and swelling, Cardiovascular: Negative for chest pain, palpitations Respiratory: + cough, neg for sob Abdomen/GI: Negative for abdominal pain, nausea, vomiting, diarrhea, and constipation, Back: Negative for injury and pain, MS/Extremity: Negative for injury and deformity, Skin: Negative for injury, rash, and discoloration, Neuro: + generalized weakness Exam: 11:04 Constitutional: This is a well developed, well nourished patient who is awake, alert, rn and in no acute distress. Head/Face: Normocephalic, atraumatic. Eyes: Pupils equal round and reactive to light, extra-ocular motions intact. Lids and lashes normal. Conjunctiva and sclera are non-icteric and not injected. Cornea within normal limits. Periorbital areas with no swelling, redness, or edema. Neck: Trachea midline, no thyromegaly or masses palpated, and no cervical lymphadenopathy. Supple, full range of motion without nuchal rigidity, or vertebral point tenderness. No Meningismus. Cardiovascular: Regular rate and rhythm with a normal S1 and S2. No gallops, murmurs, or rubs. Normal PMI, no JVD. No pulse deficits. Respiratory: + coarse right upper lung solis, no wheezing, no retractions Abdomen/GI: Soft, non-tender, with normal bowel sounds. No distension or tympany. No guarding or rebound. No evidence of tenderness throughout. Back: No spinal tenderness. No costovertebral tenderness. Full range of motion. MS/ Extremity: + peripheral edema, equal, no signs of cellulitis Neuro: Awake and alert, GCS 15, oriented to person, place, time, and situation. Cranial nerves II-XII grossly intact. Motor strength 5/5 in all extremities. Sensory grossly intact. Vital Signs: 10:11 BP 137 / 53; Pulse 67; Resp 18; Temp 98.5; Pulse Ox 99% on R/A; Weight 97.52 kg; Height aj 5 ft. 6 in. (167.64 cm); Pain 0/10; 11:09 BP 121 / 57; Pulse 64; Resp 22; Pulse Ox 100% on R/A; aj 12:18 BP 127 / 49; Pulse 68; Resp 22; Pulse Ox 100% on R/A; aj 15:24 BP 127 / 62; Pulse 67; Resp 18; Pulse Ox 100% on R/A; aj 10:11 Body Mass Index 34.70 (97.52 kg, 167.64 cm) aj MDM: 10:08 Patient medically screened. rn 12:46 Differential Diagnosis: Bronchitis Upper Respiratory Infection Viral Syndrome rn Pneumonia. Data reviewed: vital signs, nurses notes, lab test result(s), radiologic studies, plain films, and as a result, I will discharge patient. Counseling: I had a detailed discussion with the patient and/or guardian regarding: the historical points, exam findings, and any diagnostic results supporting the discharge/admit diagnosis, lab results, radiology results, the need for outpatient follow up, to return to the emergency department if symptoms worsen or persist or if there are any questions or concerns that arise at home. Special discussion: I discussed with the patient/guardian in detail that at this point there is no indication for admission to the hospital. It is understood, however, that if the symptoms persist or worsen the patient needs to return immediately for re-evaluation. ED course: Attempted to obs patient in hospital for TB rule out, even though labs and cxr do not show evidence of active TB/pulmonary TB, Dr. Valencia contacted, states nothing to do at this point, recommends discharge back to retirement. . 10/30 10:22 Order name: CBC with Diff; Complete Time: 11:42 rn 10/30 10:22 Order name: Basic Metabolic Panel; Complete Time: 11:42 rn 10/30 10:22 Order name: Blood Culture Adult (2) rn 10/30 10:22 Order name: Sputum Culture rn 10/30 10:23 Order name: BNP; Complete Time: 11:42 rn 10/30 14:21 Order name: Acid Fast Bacilli Culture [facility] 10/30 10:22 Order name: IV Start; Complete Time: 11:00 rn 10/30 10:22 Order name: XRAY Chest (1 view); Complete Time: 12:46 rn 10/30 11:33 Order name: Diet Renal; Complete Time: 11:33 aj Administered Medications: No medications were administered Disposition: 10/30/17 12:47 Discharged to Home. Impression: Cough. - Condition is Stable. - Discharge Instructions: Cough, Adult. - Medication Reconciliation Form, Thank You Letter, Antibiotic Education, Prescription Opioid Use form. - Follow up: Private Physician; When: As needed; Reason: Recheck today's complaints, Re-evaluation by your physician. - Problem is new. - Symptoms have improved. Signatures: Dispatcher [employer] Laurie Lucero RN RN aj Nieto, Roman, MD MD learning support teacher: (The following items were deleted from the chart) 15:30 12:47 10/30/2017 12:47 Discharged to Home. Impression: Cough. Condition is Stable. aj Forms are Medication Reconciliation Form, Thank You Letter, Antibiotic Education, Prescription Opioid Use. Follow up: Private Physician; When: As needed; Reason: Recheck today's complaints, Re-evaluation by your physician. Problem is new. Symptoms have improved. rn
--- NOTE | 2017-10-30 12:48 | ER ---
Nurse's Notes [facility] Name: Ernesto Chambers Age: 87 yrs Sex: Female : 1930 Arrival Date: 10/30/2017 Time: 10:03 Bed 30 Private MD: Diagnosis: Cough Presentation: 10/30 10:03 Presenting complaint: Patient states: Sent to ER to rule out RB after positive T spot. aj Transition of care: patient was not received from another setting of care. Onset of symptoms was October 30, 2017. Initial Sepsis Screen: Does the patient meet any 2 criteria? No. Patient's initial sepsis screen is negative. Does the patient have a suspected source of infection? No. Patient's initial sepsis screen is negative. Care prior to arrival: None. 10:03 Method Of Arrival: EMS: [facility] aj 10:03 Acuity: VERITO 3 aj Triage Assessment: 10:11 General: Appears in no apparent distress. comfortable, Behavior is calm, cooperative, aj appropriate for age. Pain: Denies pain. Neuro: Level of Consciousness is awake, alert, obeys commands, Oriented to person, place, time, situation, Appropriate for age. Respiratory: Reports cough that is Airway is patent Respiratory effort is even, unlabored, Respiratory pattern is regular, symmetrical, Breath sounds are coarse bilaterally. the patient has mild shortness of breath. Derm: Skin is intact, is healthy with good turgor, Skin is pink, warm \T\ dry. normal. Historical: - Allergies: 10:11 Lisinopril; aj - Home Meds: 10:11 acetaminophen 325 mg Oral tab 2 tabs every 6 hours [Active]; Amitiza 24 mcg Oral cap 1 aj cap 2 times per day [Active]; aspirin 81 mg Oral TbEC 1 tab once daily [Active]; atorvastatin 20 mg Oral tab 1 tab once daily [Active]; carvedilol 6.25 mg Oral tab 1 tab 2 times per day [Active]; cholecalciferol (vitamin D3)-vitamin K2 (MK4) Oral daily [Active]; Colace 100 mg Oral cap 1 cap once daily [Active]; Coumadin 4 mg Oral tab 1 tab once daily [Active]; Coumadin 1 mg Oral tab 1 tab once daily [Active]; Coumadin 2.5 mg Oral tab 1 tab once daily [Active]; furosemide 20 mg Oral tab 1 tab once daily [Active]; furosemide 40 mg Oral tab 1 tab 3 times per day [Active]; Klor-Con 10 10 mEq Oral TbER 1 tab once daily [Active]; lactulose 20 gram/30 mL Oral soln [Active]; levothyroxine 50 mcg tab 1 tab once daily [Active]; loratadine 10 mg Oral tab 1 tab once daily [Active]; losartan 50 mg Oral tab 1 tab 2 times per day [Active]; lovastatin 40 mg Oral tab 1 tab once daily [Active]; magnesium oxide 400 mg Oral tab 400 mg daily [Active]; Milk of Magnesia 400 mg/5 mL Oral susp 30 mL every 6 hours for constipation [Active]; Miralax 17 gram Oral pwpk 1 packet once daily [Active]; Mucinex 600 mg Oral Ta12 1 tab every 12 hours [Active]; potassium chloride 20 mEq Oral TbER 1 tab 2 times per day [Active]; Protonix 40 mg Oral TbEC 1 tab once daily [Active]; Vitamin B-12 100 mcg Oral tab 100 mcg daily [Active]; - PMHx: 10:11 Anemia; Arthritis; chronic kidney disease; Hyperlipidemia; Hypertension; aj Hypothyroidism; ventricular tachycardia; - Immunization history:: Adult Immunizations unknown. - Social history:: Smoking status: Patient/guardian denies using tobacco. - Family history:: not pertinent. - Hospitalizations: : No recent hospitalization is reported. Screenin:14 Abuse screen: Denies threats or abuse. Denies injuries from another. Nutritional aj screening: No deficits noted. Tuberculosis screening: Risk factors: previous positive skin test, Intervention for positive screen: ED Physician notified. Fall Risk None identified. 10:14 Tuberculosis screening: Placed in isolation room with call light, instructed to call aj for assistance with bedside commode. Patient awake and alert, indicated understanding of instructions. Agreed to call for help. Assessment: 10:14 Reassessment: See triage. General:. aj 12:47 Reassessment: Patient appears in no apparent distress at this time. No changes from aj previously documented assessment. Patient and/or family updated on plan of care and expected duration. Pain level reassessed. Patient is alert, oriented x 3, equal unlabored respirations, skin warm/dry/pink. Patient provided with tray. Vital Signs: 10:11 BP 137 / 53; Pulse 67; Resp 18; Temp 98.5; Pulse Ox 99% on R/A; Weight 97.52 kg; Height aj 5 ft. 6 in. (167.64 cm); Pain 0/10; 11:09 BP 121 / 57; Pulse 64; Resp 22; Pulse Ox 100% on R/A; aj 12:18 BP 127 / 49; Pulse 68; Resp 22; Pulse Ox 100% on R/A; aj 15:24 BP 127 / 62; Pulse 67; Resp 18; Pulse Ox 100% on R/A; aj 10:11 Body Mass Index 34.70 (97.52 kg, 167.64 cm) ED Course: 10:03 Patient arrived in ED. aj 10:06 Triage completed. aj 10:08 Smith Graff MD is Attending Physician. rn 10:11 Arm band placed on right wrist. Patient placed in an exam room. aj 10:14 Patient has correct armband on for positive identification. aj 10:18 Laurie Graff RN is Primary Nurse. 11:00 Inserted saline lock: 22 gauge in right antecubital area, using aseptic technique. aj Blood collected. 11:39 X-ray completed. Portable x-ray completed in exam room. Patient tolerated procedure 1 well. 11:41 XRAY Chest (1 view) In Process Unspecified. EDIN 13:15 Report given to Usman at [facility]. Nurse to arrange jose transportation back to facility, will call with estimated arrival time. 14:31 Report given to Usman from [facility], will call back with transport estimate. Nurse informed of negative chest xray and pulmonology consult. 15:13 Report given to Usman reports that transport will be coming for patient within 1 hour. jose 15:24 No provider procedures requiring assistance completed. IV discontinued, intact, aj bleeding controlled, No redness/swelling at site. Pressure dressing applied. Administered Medications: No medications were administered Outcome: 12:47 Discharge ordered by . rn 15:24 Discharged to intermediate. Report called to Usman garcia 15:24 Condition: good 15:24 Discharge instructions given to patient, intermediate, Instructed on discharge instructions, follow up and referral plans. 15:30 Patient left the ED. Signatures: Dispatcher [employer] EDMS Laurie Graff RN RN Sandy Hernandez 1 Graff, Smith, MD MD rn
--- NOTE | 2017-10-30 16:13 | P.CNS ---
Date of Consult: 10/30/17 ED called hospitalist team for consult on Ms. Chambers for possible TB exposure with active TB. Patient had full work up done in ED along with Imaging showing no acute signs of Active TB. No lymphadenopathy, mass, lesion, or consolidation noted on imaging. Patient has had cough but without hemoptysis. Denies fevers, chills, night sweats. Dr. Witt, pulmonology was consulted. Dr. Witt reviewed case and imaging. Agrees that there is no active TB at this time. [facility] be discharged to [facility] to follow up with pulmonology and wait for cultures.
== END 2017-10-30 15:30 | disposition home or self-care (01) ==
LOC: ER 10:00
DX: R05 Cough (principal); I12.9 Hypertensive chronic kidney disease with stage 1 through stage 4 chronic kidney disease, or unspecified chronic kidney disease; N18.9 Chronic kidney disease, unspecified; E78.5 Hyperlipidemia, unspecified; E03.9 Hypothyroidism, unspecified; Z79.01 Long term (current) use of anticoagulants; Z79.82 Long term (current) use of aspirin; Z88.8 Allergy status to other drugs, medicaments and biological substances
CPT/HCPCS: 36415; 71045; 80048; 83880; 85025; 87015; 87040; 87070; 87116; 87205; 87206; 99284

== ENCOUNTER 2017-12-08 11:53 | Inpatient (IN) | payer OTHER ==
--- NOTE | 2017-12-08 12:59 | ER ---
Nurse's Notes [facility] Name: Ernesto Chambers Age: 87 yrs Sex: Female : 1930 Arrival Date: 12/08/2017 Time: 11:57 Bed 19 Private MD: Enrike Renae Diagnosis: Acute on chronic renal failure;Elevated white blood cell count;Hyperkalemia Presentation: 12/08 12:00 Presenting complaint: EMS states: [facility] reports abnormal labs pertaining to the pts sg renal function, pt does have a history of CKD, no dialysis has been initiated, pt aa\T\ox1 that is the pts normal mental status per [facility] staff, pt reports feeling tired and weak. Transition of care: patient was not received from another setting of care. Onset of symptoms was December 08, 2017. Risk Assessment: Do you want to hurt yourself or someone else? Patient reports no desire to harm self or others. Initial Sepsis Screen: Does the patient meet any 2 criteria? No. Patient's initial sepsis screen is negative. Does the patient have a suspected source of infection? No. Patient's initial sepsis screen is negative. Care prior to arrival: None. 12:00 Method Of Arrival: EMS: [facility] sg 12:00 Acuity: VERITO 3 sg Historical: - Allergies: 12:00 Lisinopril; sg - Home Meds: 12:00 acetaminophen 325 mg Oral tab 2 tabs every 6 hours [Active]; Amitiza 24 mcg Oral cap 1 sg cap 2 times per day [Active]; aspirin 81 mg Oral TbEC 1 tab once daily [Active]; aspirin 81 mg Oral chew 1 tab once daily [Active]; atorvastatin 20 mg Oral tab 1 tab once daily [Active]; carvedilol 6.25 mg Oral tab 1 tab 2 times per day [Active]; cholecalciferol (vitamin D3)-vitamin K2 (MK4) Oral daily [Active]; Colace 100 mg Oral cap 1 cap once daily [Active]; Coumadin 4 mg Oral tab 1 tab once daily [Active]; Coumadin 1 mg Oral tab 1 tab once daily [Active]; Coumadin 2.5 mg Oral tab 1 tab once daily [Active]; furosemide 20 mg Oral tab 1 tab once daily [Active]; furosemide 40 mg Oral tab 1 tab 3 times per day [Active]; Klor-Con 10 10 mEq Oral TbER 1 tab once daily [Active]; lactulose 20 gram/30 mL Oral soln [Active]; levothyroxine 50 mcg tab 1 tab once daily [Active]; loratadine 10 mg Oral tab 1 tab once daily [Active]; losartan 50 mg Oral tab 1 tab 2 times per day [Active]; lovastatin 40 mg Oral tab 1 tab once daily [Active]; magnesium oxide 400 mg Oral tab 400 mg daily [Active]; Milk of Magnesia 400 mg/5 mL Oral susp 30 mL every 6 hours for constipation [Active]; Miralax 17 gram Oral pwpk 1 packet once daily [Active]; Mucinex 600 mg Oral Ta12 1 tab every 12 hours [Active]; potassium chloride 20 mEq Oral TbER 1 tab 2 times per day [Active]; Protonix 40 mg Oral TbEC 1 tab once daily [Active]; Vitamin B-12 100 mcg Oral tab 100 mcg daily [Active]; - PMHx: 12:00 Anemia; Arthritis; chronic kidney disease; Hyperlipidemia; Hypertension; sg Hypothyroidism; ventricular tachycardia; - Immunization history:: Adult Immunizations up to date. - Social history:: Smoking status: Patient/guardian denies using tobacco. - Ebola Screening: : Patient negative for fever greater than or equal to 101.5 degrees Fahrenheit, and additional compatible Ebola Virus Disease symptoms Patient denies exposure to infectious person Patient denies travel to an Ebola-affected area in the 21 days before illness onset No symptoms or risks identified at this time. Screenin:30 Abuse screen: Denies threats or abuse. Denies injuries from another. Nutritional sg screening: No deficits noted. Tuberculosis screening: No symptoms or risk factors identified. Never had TB. Fall Risk None identified. No fall in past 12 months (0 pts). Assessment: 12:00 General: Appears in no apparent distress. comfortable, obese, well groomed, well sg developed, well nourished, Behavior is calm, cooperative, appropriate for age. Pain: Denies pain. Neuro: Level of Consciousness is awake, alert, obeys commands, Oriented to person, place, Mixer Foam Rubber are equal bilaterally Moves all extremities. Weakness Gait is unsteady, Speech is normal, Facial symmetry appears normal. Cardiovascular: Heart tones S1 S2 present Capillary refill is brisk in bilateral fingers Patient's skin is warm and dry. Chest pain is denied. Respiratory: Airway is patent Respiratory effort is even, unlabored, Respiratory pattern is regular, symmetrical, Breath sounds are clear. GI: No signs and/or symptoms were reported involving the gastrointestinal system. : No signs and/or symptoms were reported regarding the genitourinary system. EENT: No signs and/or symptoms were reported regarding the EENT system. Derm: Skin is pink, warm \T\ dry. Musculoskeletal: Circulation, motion, and sensation intact. Range of motion: intact in all extremities, Swelling absent Reports weakness in right leg and left leg. 13:00 Reassessment: Patient appears in no apparent distress at this time. Patient and/or sg family updated on plan of care and expected duration. Pain level reassessed. Patient denies pain at this time. Patient states symptoms have not improved. 14:00 Reassessment: Patient appears in no apparent distress at this time. Patient and/or sg family updated on plan of care and expected duration. Pain level reassessed. awaiting a bed assignment at this time Patient denies pain at this time. 15:00 Reassessment: Patient appears in no apparent distress at this time. Patient and/or sg family updated on plan of care and expected duration. Pain level reassessed. pt assisted to bedside commode to urinate, and assisted back to bed, pt reports that made her too weak, so a bedpan will be used from now on per pt request. A large BM noted, formed stool. Vital Signs: 12:00 BP 164 / 80; Pulse 76; Resp 17; Temp 97.6; Pulse Ox 99% on R/A; Pain 6/10; sg 14:40 BP 104 / 36; Pulse 55; Resp 11; Pulse Ox 94% on Nebulizer Mask; mh5 16:00 BP 110 / 60; Pulse 62 MON; Resp 13 S; Temp 97.6; Pulse Ox 97% on R/A; Pain 6/10; sg [place] Coma Score: 16:00 Eye Response: spontaneous(4). Verbal Response: oriented(5). Motor Response: obeys sg commands(6). Total: 15. Trauma Score (Adult): 16:00 Eye Response: spontaneous(1); Verbal Response: confused(1); Motor Response: obeys sg commands(2); Systolic BP: > 89 mm Hg(4); Respiratory Rate: 10 to 29 per min(4); Guillermina Score: 14; Trauma Score: 12 ED Course: 11:57 Patient arrived in ED. sg 11:58 Enrike Renae is Private Physician. sg 12:00 Arm band placed on. sg 12:01 Андрей Wilson PA is PHCP. jr8 12:01 Smith Graff MD is Attending Physician. jr8 12:02 Triage completed. sg 12:06 EKG done, by residential gas heat technician. reviewed by Андрей MAYES. at1 12:38 Naren Pathak, RN is Primary Nurse. sg 12:59 Tara Dorantes MD is Hospitalizing Provider. jr8 13:43 Initial lab(s) drawn, by me, sent to lab. Inserted saline lock: 22 gauge in left iw antecubital area, using aseptic technique. Blood collected. 14:14 Marcos Jamison DO is Referral Physician. jr8 14:18 Tara Dorantes MD is Hospitalizing Provider. jr8 14:27 X-ray completed. Portable x-ray completed in exam room. Patient tolerated procedure ml well. 16:00 Patient has correct armband on for positive identification. Bed in low position. Call sg light in reach. Side rails up X2. orange picker machine operator on. Pulse ox on. NIBP on. Warm blanket given. Head of bed elevated. 16:00 No provider procedures requiring assistance completed. Patient admitted, IV remains in sg place. intact, No redness/swelling at site. Administered Medications: 14:40 Drug: Lasix 60 mg Route: IVP; Site: left antecubital; sg 14:40 Drug: Albuterol 2.5 mg Route: Inhalation; sg 14:40 Drug: Kayexalate 30 grams Route: PO; sg 15:00 Drug: Albuterol 2.5 mg Route: Inhalation; sg 15:20 Drug: Albuterol 2.5 mg Route: Inhalation; sg 15:55 Drug: Rocephin - (cefTRIAXone) 1 grams Route: IVPB; Infused Over: 30 mins; Site: left sg antecubital; Outcome: 12:59 Decision to Hospitalize by Provider. jr8 14:14 Discharge ordered by . jr8 14:19 Decision to Hospitalize by Provider. jr8 16:20 Admitted to Med/surg accompanied by tech, via stretcher, room 406, with chart, Report sg called to Flo Shay 16:20 Condition: stable 16:20 Instructed on the need for admit, safety practices, Demonstrated understanding of instructions. 16:24 Patient left the ED. 5 Signatures: Naren Pathak RN RN sg Williams, Irene, RN RN iw Lopez, Melissa ml Roszak, Josh, PA PA jr8 Laurie sears, melting supervisor EKG [email or web address] Angelica Alvarenga [facility] Corrections: (The following items were deleted from the chart) 16:30 14:17 Discharged to home ambulatory, sg sg 16:30 14:17 Condition: stable sg sg 16:30 14:17 Instructed on the need for admit, safety practices, Demonstrated understanding of sg instructions, sg
--- NOTE | 2017-12-08 12:59 | EDPHYS ---
Physician Documentation [facility] Name: Ernesto Chambers Age: 87 yrs Sex: Female : 1930 Arrival Date: 12/08/2017 Time: 11:57 Bed 19 Private MD: Enrike Renae ED Physician Smith Graff HPI: 12/08 12:54 This 87 yrs old Black Female presents to ER via EMS with complaints of Abnormal Lab jr8 Results. 12:54 Onset: The symptoms/episode began/occurred at an unknown time. Severity of symptoms: At jr8 their worst the symptoms were moderate in the emergency department the symptoms are unchanged. The patient has not experienced similar symptoms in the past. The patient has not recently seen a physician. Patient is a NH patient with a baseline mental status of being alert to person only. Was sent to ED for evaluation for acute on chronic kidney failure. Currently not on dialysis. Patient only complaint is that she is nauseated . Historical: - Allergies: 12:00 Lisinopril; sg - Home Meds: 12:00 acetaminophen 325 mg Oral tab 2 tabs every 6 hours [Active]; Amitiza 24 mcg Oral cap 1 sg cap 2 times per day [Active]; aspirin 81 mg Oral TbEC 1 tab once daily [Active]; aspirin 81 mg Oral chew 1 tab once daily [Active]; atorvastatin 20 mg Oral tab 1 tab once daily [Active]; carvedilol 6.25 mg Oral tab 1 tab 2 times per day [Active]; cholecalciferol (vitamin D3)-vitamin K2 (MK4) Oral daily [Active]; Colace 100 mg Oral cap 1 cap once daily [Active]; Coumadin 4 mg Oral tab 1 tab once daily [Active]; Coumadin 1 mg Oral tab 1 tab once daily [Active]; Coumadin 2.5 mg Oral tab 1 tab once daily [Active]; furosemide 20 mg Oral tab 1 tab once daily [Active]; furosemide 40 mg Oral tab 1 tab 3 times per day [Active]; Klor-Con 10 10 mEq Oral TbER 1 tab once daily [Active]; lactulose 20 gram/30 mL Oral soln [Active]; levothyroxine 50 mcg tab 1 tab once daily [Active]; loratadine 10 mg Oral tab 1 tab once daily [Active]; losartan 50 mg Oral tab 1 tab 2 times per day [Active]; lovastatin 40 mg Oral tab 1 tab once daily [Active]; magnesium oxide 400 mg Oral tab 400 mg daily [Active]; Milk of Magnesia 400 mg/5 mL Oral susp 30 mL every 6 hours for constipation [Active]; Miralax 17 gram Oral pwpk 1 packet once daily [Active]; Mucinex 600 mg Oral Ta12 1 tab every 12 hours [Active]; potassium chloride 20 mEq Oral TbER 1 tab 2 times per day [Active]; Protonix 40 mg Oral TbEC 1 tab once daily [Active]; Vitamin B-12 100 mcg Oral tab 100 mcg daily [Active]; - PMHx: 12:00 Anemia; Arthritis; chronic kidney disease; Hyperlipidemia; Hypertension; sg Hypothyroidism; ventricular tachycardia; - Immunization history:: Adult Immunizations up to date. - Social history:: Smoking status: Patient/guardian denies using tobacco. - Ebola Screening: : Patient negative for fever greater than or equal to 101.5 degrees Fahrenheit, and additional compatible Ebola Virus Disease symptoms Patient denies exposure to infectious person Patient denies travel to an Ebola-affected area in the 21 days before illness onset No symptoms or risks identified at this time. ROS: 12:54 Eyes: Negative for injury, pain, redness, and discharge, ENT: Negative for injury, jr8 pain, and discharge, Neck: Negative for injury, pain, and swelling, Cardiovascular: Negative for chest pain, palpitations, and edema, Respiratory: Negative for shortness of breath, cough, wheezing, and pleuritic chest pain, Back: Negative for injury and pain, MS/Extremity: Negative for injury and deformity, Skin: Negative for injury, rash, and discoloration, Neuro: Negative for headache, weakness, numbness, tingling, and seizure. 12:54 Abdomen/GI: Positive for nausea, Negative for abdominal pain, diarrhea, constipation, abdominal cramps, abdominal distension, anorexia, dysphagia, hematemesis, black/tarry stool, rectal pain, rectal bleeding, bowel incontinence, flatulence. Exam: 12:54 Eyes: Pupils equal round and reactive to light, extra-ocular motions intact. Lids and jr8 lashes normal. Conjunctiva and sclera are non-icteric and not injected. Cornea within normal limits. Periorbital areas with no swelling, redness, or edema. ENT: Nares patent. No nasal discharge, no septal abnormalities noted. Tympanic membranes are normal and external auditory canals are clear. Oropharynx with no redness, swelling, or masses, exudates, or evidence of obstruction, uvula midline. Mucous membranes moist. Neck: Trachea midline, no thyromegaly or masses palpated, and no cervical lymphadenopathy. Supple, full range of motion without nuchal rigidity, or vertebral point tenderness. No Meningismus. Cardiovascular: Regular rate and rhythm with a normal S1 and S2. No gallops, murmurs, or rubs. Normal PMI, no JVD. No pulse deficits. Respiratory: Lungs have equal breath sounds bilaterally, clear to auscultation and percussion. No rales, rhonchi or wheezes noted. No increased work of breathing, no retractions or nasal flaring. Abdomen/GI: Soft, non-tender, with normal bowel sounds. No distension or tympany. No guarding or rebound. No evidence of tenderness throughout. Back: No spinal tenderness. No costovertebral tenderness. Full range of motion. Skin: Warm, dry with normal turgor. Normal color with no rashes, no lesions, and no evidence of cellulitis. MS/ Extremity: Pulses equal, no cyanosis. Neurovascular intact. Full, normal range of motion. Neuro: Awake and alert, GCS 15, oriented to person, place, time, and situation. Cranial nerves II-XII grossly intact. Motor strength 5/5 in all extremities. Sensory grossly intact. Cerebellar exam normal. Normal gait. Vital Signs: 12:00 BP 164 / 80; Pulse 76; Resp 17; Temp 97.6; Pulse Ox 99% on R/A; Pain 6/10; sg 14:40 BP 104 / 36; Pulse 55; Resp 11; Pulse Ox 94% on Nebulizer Mask; mh5 16:00 BP 110 / 60; Pulse 62 MON; Resp 13 S; Temp 97.6; Pulse Ox 97% on R/A; Pain 6/10; sg [place] Coma Score: 16:00 Eye Response: spontaneous(4). Verbal Response: oriented(5). Motor Response: obeys sg commands(6). Total: 15. Trauma Score (Adult): 16:00 Eye Response: spontaneous(1); Verbal Response: confused(1); Motor Response: obeys sg commands(2); Systolic BP: > 89 mm Hg(4); Respiratory Rate: 10 to 29 per min(4); [place] Score: 14; Trauma Score: 12 MDM: 12:01 Patient medically screened. [facility] 12:54 Data reviewed: vital signs, nurses notes, lab test result(s), EKG, and as a result, I ole will admit patient. Data interpreted: Pulse oximetry: on room air is 99 %. Interpretation: normal. Counseling: I had a detailed discussion with the patient and/or guardian regarding: the historical points, exam findings, and any diagnostic results supporting the discharge/admit diagnosis, lab results, the need for further work-up and treatment in the hospital. Physician consultation: Tara Dorantes MD was called at 12:58, was contacted at 12:58, regarding admission, to the telemetry unit. consult, patient's condition, and will see patient. 12/08 12:47 Order name: Basic Metabolic Panel; Complete Time: 14:21 [facility] 12/08 12:47 Order name: CBC with Diff; Complete Time: 14:17 [facility] 12/08 12:47 Order name: Creatinine for Radiology; Complete Time: 14:17 [facility] 12/08 12:47 Order name: Hepatic Function; Complete Time: 14:21 [facility] 12/08 13:53 Order name: Blood Culture Adult (2) [facility] 12/08 13:53 Order name: Urine Microscopic Only [facility] 12/08 13:13 Order name: EKG Electrocardiogram [facility] 12/08 13:53 Order name: XRAY Chest (1 view) [facility] 12/08 14:17 Order name: Manual Differential; Complete Time: 14:17 [facility] 12/08 14:38 Order name: RAD; Complete Time: 14:40 [facility] 12/08 12:47 Order name: IV Saline Lock; Complete Time: 13:31 [facility] 12/08 12:47 Order name: Labs collected and sent; Complete Time: 13:32 [facility] 12/08 13:21 Order name: CONS Physician Consult EDMS Administered Medications: 14:40 Drug: Lasix 60 mg Route: IVP; Site: left antecubital; sg 14:40 Drug: Albuterol 2.5 mg Route: Inhalation; sg 14:40 Drug: Kayexalate 30 grams Route: PO; sg 15:00 Drug: Albuterol 2.5 mg Route: Inhalation; sg 15:20 Drug: Albuterol 2.5 mg Route: Inhalation; sg 15:55 Drug: Rocephin - (cefTRIAXone) 1 grams Route: IVPB; Infused Over: 30 mins; Site: left sg antecubital; Disposition: 16:52 Co-signature as Attending Physician, Smith Graff MD. rn Disposition: 12/08/17 14:19 Hospitalization ordered by Tara Dorantes for Inpatient Admission. Preliminary diagnosis are Acute on chronic renal failure, Elevated white blood cell count, Hyperkalemia. - Bed requested for Telemetry/MedSurg (Inpatient). - Status is Inpatient Admission. [facility] - Condition is Fair. - Problem is new. - Symptoms are unchanged. UTI on Admission? No Signatures: Dispatcher [employer] EDMS Morena Mendoza Steven, Smith Hair RN, MD MD rn Roszak, Josh, PA PA 8 LyleAngelica [facility] Corrections: (The following items were deleted from the chart) 14:14 12:59 Hospitalization Ordered by Tara Dorantes MD for Inpatient Admission. Preliminary jr8 diagnosis is Acute on chronic renal failure . Bed requested for Telemetry/MedSurg (Inpatient). Status is Inpatient Admission. Condition is Stable. Problem is new. Symptoms are unchanged. UTI on Admission? No. jr8 14:18 14:14 12/08/2017 14:14 Discharged to Home. Impression: Chronic kidney disease (CKD). jr8 Condition is Stable. Forms are Medication Reconciliation Form, Thank You Letter, Antibiotic Education, Prescription Opioid Use. Follow up: Marcos Jamison; When: 2 - 3 days; Reason: Recheck today's complaints, Continuance of care, Re-evaluation by your physician. Problem is new. Symptoms are unchanged. jr8 15:49 14:19 Hospitalization Ordered by Tara Dorantes MD for Inpatient Admission. Preliminary bd diagnosis is Acute on chronic renal failure; Elevated white blood cell count; Hyperkalemia. Bed requested for Telemetry/MedSurg (Inpatient). Status is Inpatient Admission. Condition is Fair. Problem is new. Symptoms are unchanged. UTI on Admission? No. jr8 16:24 15:49 12/08/2017 14:19 Hospitalization Ordered by Tara Dorantes MD for Inpatient 5 Admission. Preliminary diagnosis is Acute on chronic renal failure; Elevated white blood cell count; Hyperkalemia. Bed requested for Telemetry/MedSurg (Inpatient). Status is Inpatient Admission. Condition is Fair. Problem is new. Symptoms are unchanged. UTI on Admission? No. bd
[2017-12-08 13:39] LABS: Absolute Monocytes 1.4 K/uL (0.1-1.3); Absolute Neutrophil 25.9 K/uL (1.8-8.0); Basophils % 0.1 % (0-1.3); Hematocrit 35.7 % (36.0-45.0); Lymphocytes % 3.6 % (15.3-44.8); MCH 28.8 pg (27.0-35.0); MCV 92.4 fL (80-100); MPV 11.4 fL (7.6-11.3); Monocytes % 4.8 % (3.3-12.3); RBC Red Blood Cell Count 3.87 M/uL (3.86-4.86)
[2017-12-08 14:00] LABS: Albumin 3.8 g/dL (3.4-5.0); Bilirubin Direct 0.1 mg/dL (0-0.2); Bilirubin Total 0.4 mg/dL (0.2-1.0); Potassium 5.2 mmol/L (3.5-5.1); Protein, Total 8.2 g/dL (6.4-8.2)
[2017-12-08 14:16] LABS: Platelet Estimate ADEQ
[2017-12-08 14:17] LABS: Blood Morphology Comment NOT SEEN (NOT SEEN)
[2017-12-08] MEDS ORDERED: FUROSEMIDE 100 MG/10 ML VIAL IV ONE (14:34)
[2017-12-08] MEDS ORDERED: ALBUTEROL 2.5 MG/3 ML NEB SOL ONE (14:34)
[2017-12-08] MEDS ORDERED: SOD POLYSTYREN SUL 15 GM/60 ML UCUP ONE (14:35)
--- NOTE | 2017-12-08 14:38 | RAD REPORT ---
EXAM DESCRIPTION: Anusha Single View12/08/2017 2:28 pm CLINICAL HISTORY: Cough COMPARISON: October 2017 FINDINGS: The lungs appear clear of acute infiltrate. The heart is normal size IMPRESSION: No acute abnormalities displayed
--- NOTE | 2017-12-08 15:48 | P.HP ---
Certification for Inpatient Patient admitted to: Inpatient With expected LOS: >2 Midnights Patient will require the following post-hospital care: None Practitioner: I am a practitioner with admitting privileges, knowledge of patient current condition, hospital course, and medical plan of care. Services: Services provided to patient in accordance with Admission requirements found in Title 42 Section 412.3 of the Code of Federal Regulations Patient History Date of Service: 12/08/17 Primary Care Provider: Dr Salazar Reason for admission: Sepsis History of Present Illness: This is a 87-year-old female with significant past medical history of hypertension, hypothyroidism, CHF, chronic kidney disease, DVT, obesity, who presented to the ED from [facility] after having abnormal lab work there. Patient did not have any other complaints when she was brought over to the hospital. Patient's BUN and creatinine on the lab work today was elevated to 87/4.20 which has been not her normal before. Patient does have chronic kidney disease however has not had a followup appointment with nephrology recently. Patient was admitted to the hospital last month for her shortness of breath most likely secondary to CHF exacerbation. Patient's is currently alert and oriented x1 and most of the history was collected from the ED physician who stated that the longterm had no complaints to offer and denied having any fever chills nausea vomiting patient was just sent over for abnormal labs. In the ER patient had an extensive workup done with CBC CMP chest x-ray. Patient was found to have sepsis and CKD and thus was referred for admission for further care. Allergies lisinopril Allergy (Mild, Verified 10/26/17 22:26) Shortness of breath Home Medications: Acetaminophen [Tylenol] 2 tab PO Q6H PRN 10/27/17 Aspirin Chewable [Aspirin Chewable*] 81 mg PO DAILY 10/27/17 Atorvastatin Calcium [Lipitor*] 20 mg PO BEDTIME 10/27/17 Cholecalciferol (Vitamin D3) [Vitamin D3] 5,000 unit PO DAILY 10/27/17 Cyanocobalamin (Vitamin B-12) [Vitamin B-12] 1 tab PO DAILY 10/27/17 Docusate [Colace Cap] 100 mg PO DAILY 10/27/17 Furosemide [Lasix*] 40 mg PO TID 10/27/17 Guaifenesin [Mucinex] 600 mg PO BID MDD For 7 days 10/27/17 Guaifenesin [Tussin Mucus-Chest Congestion] 10 ml PO Q4H PRN 10/27/17 Lactulose 20 gm PO Q24H PRN 10/27/17 Levothyroxine Sodium 50 mcg PO [id number] 10/27/17 Loratadine [Claritin] 10 mg PO DAILY 10/27/17 Losartan Potassium 50 mg PO BID 10/27/17 Mag Hydroxide 8% [Milk Of Magnesia*] 30 ml PO Q6H PRN 10/27/17 Magnesium Oxide [Mag 0X*] 400 mg PO BID 10/27/17 Pantoprazole Sodium [Protonix] 40 mg PO BID 10/27/17 Polyethylene Glycol 3350 [Miralax] 17 gm PO DAILY PRN 10/27/17 Potassium Chloride 20 meq PO BID 10/27/17 Warfarin Sodium [Coumadin*] 1 mg PO DAILY 10/27/17 Warfarin Sodium [Coumadin*] 2.5 mg PO DAILY 10/27/17 Nifedipine Xl [Procardia Xl*] 30 mg PO BID tab 10/29/17 - Past Medical/Surgical History Diabetic: No -: Hypertension -: CHF, diastolic dysfunction -: Chronic renal disease -: Anemia of chronic disease -: Hypothyroidism -: Chronic thrombosis right lower leg -: Chronic anti coagulation-Coumadin -: Former tobacco use -: Chronic constipation -: Mild aortic stenosis -: Pre diabetes -: prediabetes -: Back surgery Psychosocial/ Personal History: The patient currently lives at a longterm. She was living alone at home. Patient does not have any children. She is a . - Family History Father -: Hypertension, Kidney disease - Social History Alcohol use: No CD- Drugs: No Caffeine use: Yes Review of Systems General: As per HPI Physical Examination - Physical Exam General: Alert, In no apparent distress, Oriented x1 HEENT: Atraumatic Neck: Supple, 2+ carotid pulse no bruit, No LAD Respiratory: Clear to auscultation bilaterally, Normal air movement Cardiovascular: Regular rate/rhythm, Normal S1 S2 Gastrointestinal: Normal bowel sounds, No tenderness Musculoskeletal: No tenderness Integumentary: No rashes Neurological: Normal strength at 5/5 x4 extr, Normal tone Lymphatics: No axilla or inguinal lymphadenopathy Assessment and Plan - Problems (Diagnosis) (1) Sepsis Current Visit: Yes Status: Acute Plan: Most Likely 2.2 to UTI. -IV Rocephin for now -IV fluids with caution. -lactic acid pending -No pressor support required at this time -F/U with Blood and urine Culture. -Xray WNL Qualifiers: Sepsis type: sepsis due to unspecified organism Qualified Code(s): A41.9 - Sepsis, unspecified organism (2) Chronic renal disease Onset Date: 05/22/17 Current Visit: No Status: Acute Plan: Acute on chronic KD -BUN/CR slowly rising. Today is 4.60 -IV fluids with Caution. Will stop if fluid overload -nephrology Consulted. Awaiting reccs Qualifiers: Chronic kidney disease stage: stage 4 (severe) Qualified Code(s): N18.4 - Chronic kidney disease, stage 4 (severe) (3) Toxic encephalopathy Current Visit: Yes Status: Acute Plan: At baseline AAOx 1 but does appear more confused today. Most Likely 2.2 to UTI -Will monitor closely. -Treat Underlying condition (4) CHF (congestive heart failure) Onset Date: 05/22/17 Current Visit: No Status: Chronic Plan: CHF stable for now -1+ swelling on the BL LE at baseline -Will give fluids with caution and repeat Labs in AM -Restart Home medication -Fluid restriction and Low NA diet -Last ECHO in october with EF of 78% Qualifiers: Heart failure type: diastolic Heart failure chronicity: chronic Qualified Code(s): I50.32 - Chronic diastolic (congestive) heart failure (5) Aortic stenosis Onset Date: 10/27/17 Current Visit: No Status: Chronic Plan: Aortic Sclerosis noted on the ECHO in October 2017. Qualifiers: Cardiac valve disease etiology: etiology unspecified (6) Chronic anticoagulation Onset Date: 05/22/17 Current Visit: No Status: Chronic Plan: Restart Coumadin. Takes for DVT (7) History of DVT (deep vein thrombosis) Onset Date: 05/22/17 Current Visit: No Status: Chronic (8) Hyperlipidemia Onset Date: 10/27/17 Current Visit: No Status: Chronic Plan: Restart Home medication Qualifiers: Hyperlipidemia type: pure hypercholesterolemia Qualified Code(s): E78.00 - Pure hypercholesterolemia, unspecified; E78.0 - Pure hypercholesterolemia (9) Hypothyroidism Onset Date: 05/22/17 Current Visit: No Status: Chronic Plan: Restart Home medication Qualifiers: Hypothyroidism type: acquired Qualified Code(s): E03.9 - Hypothyroidism, unspecified (10) Obesity Onset Date: 05/22/17 Current Visit: No Status: Chronic Qualifiers: Obesity type: due to excess calories Obesity classification: adult class 3 (BMI >= 40) - Advance Directives Does patient have a Living Will: Yes Does patient have a Durable POA for Healthcare: Yes
[2017-12-08] MEDS ORDERED: CEFTRIAXONE/SWI 1gm 1 GM/10 ML SYR ONE (15:53)
[2017-12-08] MEDS ORDERED: ONDANSETRON 4 MG/2 ML VIAL IV PRN (16:33)
[2017-12-08] MEDS ORDERED: NA CHLORIDE 0.9% 1,000 ML IV SCH ×2 (16:33→17:00)
[2017-12-08] MEDS ORDERED: ACETAMINOPHEN 500 MG TAB PO PRN (16:33)
[2017-12-08 16:54] LABS: Urine Blood 1+ (NEG); Urine Glucose NEGATIVE (NEG); Urine Protein NEGATIVE (NEG); Urine pH 5.5 (5.0-7.0)
[2017-12-08] MEDS ORDERED: NA CHLORIDE 0.9% 250 ML IV ONE ×2 (16:58→18:29)
[2017-12-08 17:00] LABS: Urine Bacteria 20-50 /HPF (<20); Urine Culture Reflex Order REFLEXED
--- NOTE | 2017-12-08 17:32 | EKG ---
Test Date: 2017-12-08 Test Time: 11:52:42 Ship Captain: ZANDRA MEASUREMENT RESULTS: Intervals: Rate: 80 IN: 176 QRSD: 84 QT: 370 QTc: 426 [place]: P: 75 IN: 176 QRS: 43 T: 132 INTERPRETIVE STATEMENTS: Normal sinus rhythm nst Abnormal ECG Compared to ECG 10/27/2017 12:37:27 Electronically Signed On 12-08-17 17:30:58 CDT by Danny Posada
[2017-12-08] MEDS: NA CHLORIDE 0.9% 1,000 ML IV SCH (19:00)
[2017-12-09 06:26] LABS: Absolute Lymphocytes (CBC) 1.9 K/uL (0.7-4.9); Absolute Monocytes 1.1 K/uL (0.1-1.3); Absolute Neutrophil 13.8 K/uL (1.8-8.0); Basophils % 0.3 % (0-1.3); Eosinophils % 0.3 % (0-4.4); Hematocrit 31.4 % (36.0-45.0); Lymphocytes % 11.1 % (15.3-44.8); MCH 28.8 pg (27.0-35.0); MCV 92.4 fL (80-100); MPV 11.8 fL (7.6-11.3); Monocytes % 6.4 % (3.3-12.3)
[2017-12-09 06:33] LABS: Albumin 3.2 g/dL (3.4-5.0); Bilirubin Total 0.2 mg/dL (0.2-1.0); Magnesium 2.4 mg/dL (1.8-2.4); Phosphorus 3.7 mg/dL (2.5-4.9); Potassium 4.5 mmol/L (3.5-5.1); Protein, Total 7.4 g/dL (6.4-8.2)
[2017-12-09] MEDS: CEFTRIAXONE/SWI 1gm 1 GM/10 ML SYR IV SCH (08:34)
[2017-12-09] MEDS: NA CHLORIDE 0.9% 1,000 ML IV SCH ×2 (08:34→11:00)
[2017-12-09] MEDS ORDERED: MAGNESIUM HYDROXIDE 8% 30 ML PO PRN (10:25)
--- NOTE | 2017-12-09 11:42 | P.PN ---
Subjective Date of Service: 12/09/17 Primary Care Provider: Dr Salazar Chief Complaint: Sepsis Pt seen and examined at bedside. Chart reviewed. Case DW with Nephrology. Doing well today. AAOx 2 today. Feeling better than before. Review of Systems General: As per HPI Physical Examination - Vital Signs Temperature: 97.0 F Blood Pressure: 93/49 Pulse: 61 Respirations: 16 Pulse Ox (%): 96 - Physical Exam General: Alert, In no apparent distress, Oriented x2 HEENT: Atraumatic Neck: Supple Respiratory: Clear to auscultation bilaterally, Normal air movement Cardiovascular: Regular rate/rhythm, Normal S1 S2 Gastrointestinal: Normal bowel sounds, No tenderness Musculoskeletal: No tenderness Integumentary: No rashes Neurological: Normal speech, Normal tone, Normal affect Lymphatics: No axilla or inguinal lymphadenopathy - Studies Medications List Reviewed: Yes Assessment & Plan - Problems (Diagnosis) (1) Sepsis Current Visit: Yes Status: Acute Plan: Most Likely 2.2 to UTI. urine Culture + for gram - rods -IV Rocephin for now -IV fluids at 50ml.hr now -lactic acid 3.6. Today improved. -No pressor support required at this time -F/U with Blood and urine Culture. -Xray WNL Qualifiers: Sepsis type: sepsis due to unspecified organism Qualified Code(s): A41.9 - Sepsis, unspecified organism (2) Chronic renal disease Onset Date: 05/22/17 Current Visit: No Status: Acute Plan: Acute on chronic KD -BUN/CR improved today 4.20 -IV fluids with Caution. Will stop if fluid overload -nephrology Consulted. Awaiting [facility] Qualifiers: Chronic kidney disease stage: stage 4 (severe) Qualified Code(s): N18.4 - Chronic kidney disease, stage 4 (severe) (3) Toxic encephalopathy Current Visit: Yes Status: Acute Plan: At baseline AAOx 2 improved markedly today. Most Likely 2.2 to UTI -Will monitor closely. -Treat Underlying condition (4) CHF (congestive heart failure) Onset Date: 05/22/17 Current Visit: No Status: Chronic Plan: CHF stable for now -1+ swelling on the BL LE at baseline -Will give fluids with caution and repeat Labs in AM -Restart Home medication -Fluid restriction and Low NA diet -Last ECHO in october with EF of 78% Qualifiers: Heart failure type: diastolic Heart failure chronicity: chronic Qualified Code(s): I50.32 - Chronic diastolic (congestive) heart failure (5) Aortic stenosis Onset Date: 10/27/17 Current Visit: No Status: Chronic Plan: Aortic Sclerosis noted on the ECHO in October 2017. Qualifiers: Cardiac valve disease etiology: etiology unspecified (6) Chronic anticoagulation Onset Date: 05/22/17 Current Visit: No Status: Chronic Plan: Restart Coumadin. Takes for DVT (7) History of DVT (deep vein thrombosis) Onset Date: 05/22/17 Current Visit: No Status: Chronic (8) Hyperlipidemia Onset Date: 10/27/17 Current Visit: No Status: Chronic Plan: Restart Home medication Qualifiers: Hyperlipidemia type: pure hypercholesterolemia Qualified Code(s): E78.00 - Pure hypercholesterolemia, unspecified; E78.0 - Pure hypercholesterolemia (9) Hypothyroidism Onset Date: 05/22/17 Current Visit: No Status: Chronic Plan: Restart Home medication Qualifiers: Hypothyroidism type: acquired Qualified Code(s): E03.9 - Hypothyroidism, unspecified (10) Obesity Onset Date: 05/22/17 Current Visit: No Status: Chronic Qualifiers: Obesity type: due to excess calories Obesity classification: adult class 3 (BMI >= 40) Discharge Plan: Jail Plan to discharge in: 48 Hours - Code Status/Comfort Care Code Status Assessed: Yes Critical Care: No
[2017-12-09 13:09] LABS: Protime INR 4.68
--- NOTE | 2017-12-09 13:32 | P.PN ---
Subjective Date of Service: 12/09/17 Primary Care Provider: Dr Salazar Chief Complaint: Sepsis patient seen/examined. d/w nurse charge rn and patient's primary rn. advised to encourage po intake. breathing well. weak generally. pt/inr elevated...but coumadin off now. alert. urine with g(-) and patient on rocephin. vs stable. lungs cta cvs rrr abd soft/nt/bs + ext no edema a/p: rosa/uti. continue judicious ivf. encourage po. repeat pt/inr with labs tomorrow. off coumdin. fall precautions. on rocephin daily. give one dose of levaquin to provide coverage for pseudomonas...this dose should be good for a couple of days while the cx/id of g(-) should be back. patient is clinically improved. orders reviewed/discussed with nurse charge rn and patient's rn. Physical Examination - Vital Signs Temperature: 97.1 F Blood Pressure: 95/39 Pulse: 59 Respirations: 16 Pulse Ox (%): 100 - Studies Medications List Reviewed: Yes
[2017-12-09] MEDS ORDERED: Levofloxacin500mg IV 500 MG/100 ML BAG IV ONE (14:00)
--- NOTE | 2017-12-09 14:35 | RAD REPORT ---
EXAM DESCRIPTION: RAD - Chest Single View - 12/09/2017 2:30 pm CLINICAL HISTORY: eval CHF Chest pain. COMPARISON: Chest Single View dated 12/08/2017; Chest Single View dated 10/30/2017; Chest Single View dated 10/28/2017; Chest Single View dated 10/27/2017 FINDINGS: Portable technique limits examination quality. The lungs are grossly clear. The heart is normal in size. No displaced fractures. IMPRESSION: No acute intrathoracic process suspected.
[2017-12-09] MEDS: PANTOPRAZOLE 40MG TABLET PO SCH (21:17)
[2017-12-09] MEDS: ATORVASTATIN 20 MG TAB PO SCH (21:17)
[2017-12-09] MEDS: MAGNESIUM OXIDE 400 MG TAB PO SCH (21:17)
[2017-12-10] MEDS: NA CHLORIDE 0.9% 1,000 ML IV SCH ×2 (03:44→07:00)
[2017-12-10 06:04] LABS: Absolute Lymphocytes (CBC) 1.7 K/uL (0.7-4.9); Absolute Monocytes 0.8 K/uL (0.1-1.3); Absolute Neutrophil 6.8 K/uL (1.8-8.0); Basophils % 0.5 % (0-1.3); Eosinophils % 0.6 % (0-4.4); Hematocrit 29.9 % (36.0-45.0); Lymphocytes % 17.8 % (15.3-44.8); MCH 29.1 pg (27.0-35.0); MCV 92.5 fL (80-100); MPV 11.4 fL (7.6-11.3); Monocytes % 8.2 % (3.3-12.3); RBC Red Blood Cell Count 3.23 M/uL (3.86-4.86)
[2017-12-10 06:11] LABS: Protime INR 3.44
[2017-12-10] MEDS: LEVOTHYROXINE SOD 0.05 MG TABLET PO SCH (06:12)
[2017-12-10 06:31] LABS: Albumin 2.8 g/dL (3.4-5.0); Bilirubin Total 0.3 mg/dL (0.2-1.0); Magnesium 2.2 mg/dL (1.8-2.4); Phosphorus 3.3 mg/dL (2.5-4.9); Potassium 3.9 mmol/L (3.5-5.1); Thyroid Stimulating Hormone 2.11 uIU/mL (0.36-3.74)
[2017-12-10] MEDS ORDERED: POLYETHYL GLY 3350 17 GM/DOSE PO PRN (09:00)
[2017-12-10] MEDS: MAGNESIUM OXIDE 400 MG TAB PO SCH ×2 (09:00→20:27)
[2017-12-10] MEDS: CEFTRIAXONE/SWI 1gm 1 GM/10 ML SYR IV SCH (09:18)
[2017-12-10] MEDS: ASPIRIN 81 MG CHEWABLE TABLET PO SCH (09:18)
[2017-12-10] MEDS: PANTOPRAZOLE 40MG TABLET PO SCH ×2 (09:19→20:25)
[2017-12-10] MEDS: DOCUSATE NA 100 MG CAP PO SCH (09:19)
[2017-12-10] MEDS: LORATADINE 10 MG TAB PO SCH (09:19)
[2017-12-10] MEDS ORDERED: CEFUROXIME 250 MG TAB PO SCH (11:00)
--- NOTE | 2017-12-10 11:39 | P.PN ---
Subjective Date of Service: 12/10/17 Primary Care Provider: Dr Salazar Chief Complaint: Sepsis Pt seen and examined at bedside. Chart reviewed. Case DW with Nephrology. Doing well today. AAOx 2 today. Feeling better than before. Review of Systems General: As per HPI Physical Examination - Vital Signs Temperature: 97.0 F Blood Pressure: 128/58 Pulse: 59 Respirations: 18 Pulse Ox (%): 100 - Physical Exam General: Alert, In no apparent distress, Oriented x2 HEENT: Atraumatic Neck: Supple, JVD not distended Respiratory: Clear to auscultation bilaterally, Normal air movement Cardiovascular: Regular rate/rhythm, Normal S1 S2 Gastrointestinal: Normal bowel sounds, No tenderness Musculoskeletal: No tenderness Integumentary: No rashes Neurological: Normal speech, Normal tone, Normal affect Lymphatics: No axilla or inguinal lymphadenopathy - Studies Medications List Reviewed: Yes Assessment & Plan - Problems (Diagnosis) (1) Sepsis Current Visit: Yes Status: Acute Plan: Most Likely 2.2 to UTI. urine Culture + for ECOLI -Switched to Cefuroxime -IV fluids at 50ml.hr now -No pressor support required at this time -F/U with Blood culture -Xray WNL Qualifiers: Sepsis type: sepsis due to unspecified organism Qualified Code(s): A41.9 - Sepsis, unspecified organism (2) Chronic renal disease Onset Date: 05/22/17 Current Visit: No Status: Acute Plan: Acute on chronic KD -BUN/CR improved today 3.00 -IV fluids with Caution. Will stop if fluid overload -Nephrology Consulted. Reccs Appreciated Qualifiers: Chronic kidney disease stage: stage 4 (severe) Qualified Code(s): N18.4 - Chronic kidney disease, stage 4 (severe) (3) Toxic encephalopathy Current Visit: Yes Status: Acute Plan: At baseline AAOx 2 improved markedly today. Most Likely 2.2 to UTI -Will monitor closely. -Treat Underlying condition (4) CHF (congestive heart failure) Onset Date: 05/22/17 Current Visit: No Status: Chronic Plan: CHF stable for now -1+ swelling on the BL LE at baseline -Restart Home medication -Fluid restriction and Low NA diet -Last ECHO in october with EF of 78% Qualifiers: Heart failure type: diastolic Heart failure chronicity: chronic Qualified Code(s): I50.32 - Chronic diastolic (congestive) heart failure (5) Aortic stenosis Onset Date: 10/27/17 Current Visit: No Status: Chronic Plan: Aortic Sclerosis noted on the ECHO in October 2017. Qualifiers: Cardiac valve disease etiology: etiology unspecified (6) Chronic anticoagulation Onset Date: 05/22/17 Current Visit: No Status: Chronic Plan: INR today 3.44 -Continue to hold warfarin at this time. (7) History of DVT (deep vein thrombosis) Onset Date: 05/22/17 Current Visit: No Status: Chronic (8) Hyperlipidemia Onset Date: 10/27/17 Current Visit: No Status: Chronic Plan: Restart Home medication Qualifiers: Hyperlipidemia type: pure hypercholesterolemia Qualified Code(s): E78.00 - Pure hypercholesterolemia, unspecified; E78.0 - Pure hypercholesterolemia (9) Hypothyroidism Onset Date: 05/22/17 Current Visit: No Status: Chronic Plan: Restart Home medication Qualifiers: Hypothyroidism type: acquired Qualified Code(s): E03.9 - Hypothyroidism, unspecified (10) Obesity Onset Date: 05/22/17 Current Visit: No Status: Chronic Qualifiers: Obesity type: due to excess calories Obesity classification: adult class 3 (BMI >= 40) Discharge Plan: Detention Plan to discharge in: 48 Hours - Code Status/Comfort Care Code Status Assessed: Yes Critical Care: No
--- NOTE | 2017-12-10 15:14 | RAD REPORT ---
EXAM DESCRIPTION: RAD - Chest Single View - 12/10/2017 3:07 pm CLINICAL HISTORY: CHF, cough, pneumonia COMPARISON: December 09 TECHNIQUE: AP portable chest image was obtained 1455 hours . FINDINGS: No new mass or consolidation. Heart size within normal limits. Vasculature is not substant ially different from comparison. Patient has a baseline mild prominence of the interstitial markings not substantially different. Trachea is midline. No measurable pleural effusion and no pneumothorax. No gross bony abnormality seen. No acute aortic findings suspected. IMPRESSION: Vasculature and lung markings are mildly prominent and similar to comparison. Heart size is normal range. Minimal edema or infiltrate process could be masked by the chronic pattern.
[2017-12-10] MEDS ORDERED: WARFARIN SODIUM 1 MG TAB PO SCH ×2 (17:00)
[2017-12-10] MEDS ORDERED: WARFARIN SODIUM 2.5 MG TAB PO SCH ×2 (17:00)
[2017-12-10] MEDS: ATORVASTATIN 20 MG TAB PO SCH (20:25)
[2017-12-10] MEDS: CEFUROXIME 250 MG TAB PO SCH (20:25)
[2017-12-11] MEDS: NA CHLORIDE 0.9% 1,000 ML IV SCH ×2 (01:30→02:13)
[2017-12-11] MEDS: D5W 1,000 ML IV SCH ×2 (02:15→23:07)
[2017-12-11] MEDS: LEVOTHYROXINE SOD 0.05 MG TABLET PO SCH (05:11)
[2017-12-11 05:47] LABS: Absolute Lymphocytes (CBC) 1.4 K/uL (0.7-4.9); Absolute Monocytes 0.5 K/uL (0.1-1.3); Absolute Neutrophil 3.4 K/uL (1.8-8.0); Basophils % 0.7 % (0-1.3); Eosinophils % 1.2 % (0-4.4); Hematocrit 30.1 % (36.0-45.0); Lymphocytes % 25.8 % (15.3-44.8); MCH 29.7 pg (27.0-35.0); MCV 92.6 fL (80-100); MPV 11.4 fL (7.6-11.3); Monocytes % 9.2 % (3.3-12.3); Protime INR 2.48; RBC Red Blood Cell Count 3.26 M/uL (3.86-4.86)
[2017-12-11 06:01] LABS: Albumin 2.8 g/dL (3.4-5.0); Bilirubin Total 0.2 mg/dL (0.2-1.0); Magnesium 2.1 mg/dL (1.8-2.4); Phosphorus 2.6 mg/dL (2.5-4.9); Potassium 3.6 mmol/L (3.5-5.1); Protein, Total 6.9 g/dL (6.4-8.2)
[2017-12-11] MEDS: CEFUROXIME 250 MG TAB PO SCH (09:00)
[2017-12-11] MEDS: PANTOPRAZOLE 40MG TABLET PO SCH ×2 (10:16→22:08)
[2017-12-11] MEDS: DOCUSATE NA 100 MG CAP PO SCH (10:16)
[2017-12-11] MEDS: MAGNESIUM OXIDE 400 MG TAB PO SCH ×2 (10:16→22:08)
[2017-12-11] MEDS: LORATADINE 10 MG TAB PO SCH (10:17)
[2017-12-11] MEDS: ASPIRIN 81 MG CHEWABLE TABLET PO SCH (10:17)
[2017-12-11] MEDS: Meropenem 500 MG in NA CHLORIDE 0.9% 100 ML IV SCH ×2 (10:44→23:07)
--- NOTE | 2017-12-11 14:02 | PN ---
Date of Progress Note: 12/11/2017 Subjective: The patient is seen and examined, chart reviewed, and case discussed with RN. No acute events overnight. Review of Systems: Negative except as above. Medications: Reviewed. Objective: Vital signs: Temperature 98, heart rate 68, blood pressure 138/66, respirations 18, and O2 100% on 1.5 L via nasal cannula. General: Awake, alert, oriented x2. No acute distress. Elderly female, obese, BMI at 30. CV: S1, S2. Positive systolic murmur. Respiratory: Some diminished breath sounds at the bases. No wheezing or crackles. No use of access ory muscles. Gastrointestinal: Abdomen is soft, nontender, nondistended. Positive bowel sounds. No guarding or rigidity. Extremities: No clubbing, cyanosis. The patient has some pedal edema. Neurologic: Nonfocal. Laboratory Data: INR 2.48. WBC 5.3, H and H 5.7, 30.1, and platelets 135. Sodium 147, potassium 3. 6, chloride 113, CO2 26, BUN 53, creatinine 2.3, glucose 76, calcium 8.9,, and magnesium 2.1. Urine culture showing E coli and Proteus mirabilis, which is ESBL producing. Blood cultures, no growth to date. Sputum culture pending. Assessment: An 87-year-old female with; 1.Sepsis secondary to urinary tract infection. We will switch IV antibiotics to meropenem. Continu e IV fluids. Blood cultures and sputum culture pending. 2.Urinary tract infection secondary to Escherichia coli and extended-spectrum beta-lactamase produci ng Proteus. IV antibiotics have been updated to meropenem. The patient will need at least 2-4 weeks of IV meropenem. We will get PICC line. 3.Chronic kidney disease, acute on chronic kidney injury. Creatinine has improved. Monitor fluid s tatus closely. May need to adjust IV fluids depending on her fluid status. Stage 4 kidney disease. 4.Toxic acute metabolic encephalopathy, improved, back to her baseline, likely secondary to urinary tract infection. 5.Congestive heart failure, chronic diastolic dysfunction. Continue home medications. Continue flu id restriction and sodium restriction. Ejection fraction 78%. 6.Aortic stenosis. 7.Chronic anticoagulation. INR back down to therapeutic level. We will resume Coumadin. 8.History of deep venous thrombosis, on Coumadin. 9.Hyperlipidemia. We will resume home medications. 10.Hypothyroidism. Continue Synthroid. 11.Obesity, body mass index 30. 12.Gastrointestinal and deep venous thrombosis prophylaxis addressed. Plan: We will set up long-term IV antibiotics. Discharge planning. EMMA Voice ID: [id number] Report ID: [id number]
[2017-12-11] MEDS ORDERED: Meropenem 500 MG VIAL IV SCH (17:00)
--- NOTE | 2017-12-11 21:46 | P.PN ---
Date of Service: 12/11/17 Vital Signs Temp Pulse Resp BP Pulse Ox 98.4 F 65 16 168/74 H 100 12/11/17 20:00 12/11/17 20:00 12/11/17 20:00 12/11/17 20:00 12/11/17 20:00 Medications Acetaminophen (Tylenol -Extra Strength) 500 mg PO Q4HP PRN PRN Reason: [id number] Stop: 01/07/18 16:34 Aspirin (Aspirin Chewable) 81 mg PO DAILY MALDONADO Stop: 01/09/18 09:01 Last Admin: 12/11/17 10:17 Dose: 81 mg Atorvastatin Calcium (Lipitor) 20 mg PO BEDTIME MALDONADO Stop: 01/08/18 21:01 Last Admin: 12/10/17 20:25 Dose: 20 mg Docusate Sodium (Colace Cap) 100 mg PO DAILY MALDONADO Stop: 01/09/18 09:01 Last Admin: 12/11/17 10:16 Dose: 100 mg Enteral Nutritional Formula (Suplena) 237 ml PO DAILY MALDONADO Stop: 01/11/18 09:01 Sodium Chloride (Ns 1000 Ml Ivbag) 1,000 mls @ 50 mls/hr IV .Q20H MALDONADO Stop: 01/08/18 11:01 Last Admin: 12/11/17 02:13 Dose: Not Given Meropenem 500 mg/ Sodium (Chloride) 100 mls @ 100 mls/hr IV Q12HR MALDONADO Stop: 01/10/18 10:31 Last Admin: 12/11/17 10:44 Dose: 100 mls Levothyroxine Sodium (Synthroid) 0.05 mg PO [id number] MALDONADO Stop: 01/09/18 06:01 Last Admin: 12/11/17 05:11 Dose: 0.05 mg Loratadine (Claritin) 10 mg PO DAILY MALDONADO Stop: 01/09/18 09:01 Last Admin: 12/11/17 10:17 Dose: 10 mg Magnesium Hydroxide (Milk Of Magnesia) 30 ml PO Q6H PRN PRN Reason: CONSTIPATION Stop: 01/08/18 10:26 Magnesium Oxide (Mag 0x Tab) 400 mg PO BID MALDONDAO Stop: 01/08/18 21:01 Last Admin: 12/11/17 10:16 Dose: 400 mg Ondansetron HCl (Zofran) 4 mg IV Q6HP PRN PRN Reason: NAUSEA / VOMITING Stop: 01/07/18 16:34 Pantoprazole Sodium (Protonix Tab) 40 mg PO BID MALDONADO Stop: 01/08/18 21:01 Last Admin: 12/11/17 10:16 Dose: 40 mg Polyethylene Glycol (Glycolax) 17 gm PO DAILYPRN PRN PRN Reason: CONSTIPATION Stop: 01/09/18 09:01 Sodium Chloride (Normal Saline Flush) 10 ml IV BID MALDONADO Stop: 01/07/18 21:01 Last Admin: 12/11/17 10:16 Dose: 10 ml Warfarin Sodium (Coumadin) 2.5 mg PO DAILY 5 PM MALDONADO Stop: 01/09/18 17:01 Last Admin: 12/11/17 18:00 Dose: 2.5 mg Warfarin Sodium (Coumadin) 1 mg PO DAILY 5 PM MALDONADO Stop: 01/09/18 17:01 Last Admin: 12/11/17 18:00 Dose: 1 mg Assessment/ Plan: Nephrology. Feeling better today. CPS stable without CP or SOB. No acute events overnight. Vitals, medications, blood work and imaging reviewed in the chart. NAD. Obese. MMM. Neck supple. CTA. RRR. Soft Abd. No C/C/E. No rash. AAO. Normal speech. A/ CKD IV, improved. Hypernatremia, worse. Moderate Malnutrition. Anemia in chronic illness. Thrombocytopenia. Sepsis/ Acute cystitis. E.coli. Diastolic CHF, chronic. . P/ Continue current POC and Medications. Agree with abx. Change IVF to D5W. No NSAIDs. AM labs. Daily weight.
[2017-12-11] MEDS: ATORVASTATIN 20 MG TAB PO SCH (22:08)
--- NOTE | 2017-12-11 22:22 | RAD REPORT ---
EXAM DESCRIPTION: RAD - Chest Single View - 12/11/2017 10:16 pm CLINICAL HISTORY: PICC Placement COMPARISON: Chest Single View dated 12/10/2017; Chest Single View dated 12/09/2017; Chest Single View dated 12/08/2017; Chest Single View dated 10/30/2017 FINDINGS: Portable chest was obtained following placement of a left upper extremity PICC line. The c atheter tip projects over the SVC.
[2017-12-12] MEDS: Meropenem 500 MG in NA CHLORIDE 0.9% 100 ML IV SCH ×2 (01:45→09:09)
[2017-12-12 05:19] LABS: Protime INR 2.14
[2017-12-12 05:22] LABS: Absolute Lymphocytes (CBC) 1.1 K/uL (0.7-4.9); Absolute Monocytes 0.6 K/uL (0.1-1.3); Absolute Neutrophil 4.6 K/uL (1.8-8.0); Basophils % 0.5 % (0-1.3); Eosinophils % 0.8 % (0-4.4); Hematocrit 27.8 % (36.0-45.0); Lymphocytes % 17.3 % (15.3-44.8); MCH 29.6 pg (27.0-35.0); MCV 92.7 fL (80-100); MPV 11.7 fL (7.6-11.3); Monocytes % 8.8 % (3.3-12.3)
[2017-12-12] MEDS: LEVOTHYROXINE SOD 0.05 MG TABLET PO SCH (05:37)
[2017-12-12 05:41] LABS: Potassium 3.5 mmol/L (3.5-5.1)
--- NOTE | 2017-12-12 08:10 | RAD REPORT ---
EXAM DESCRIPTION: RAD - Chest Single View - 12/12/2017 1:31 am CLINICAL HISTORY: PICC Placement COMPARISON: Chest Single View dated 12/11/2017; Chest Single View dated 12/10/2017; Chest Single View dated 12/09/2017; Chest Single View dated 12/08/2017 FINDINGS: Portable chest was obtained following placement of a left upper extremity PICC line. The c atheter tip projects over the SVC..
[2017-12-12] MEDS ORDERED: SUPLENA IMPAIRED RENAL 237 ML CAN PO SCH (09:00)
[2017-12-12] MEDS: LORATADINE 10 MG TAB PO SCH (09:10)
[2017-12-12] MEDS: ASPIRIN 81 MG CHEWABLE TABLET PO SCH (09:10)
[2017-12-12] MEDS: MAGNESIUM OXIDE 400 MG TAB PO SCH (09:10)
[2017-12-12] MEDS: DOCUSATE NA 100 MG CAP PO SCH (09:10)
[2017-12-12] MEDS: PANTOPRAZOLE 40MG TABLET PO SCH (09:10)
--- NOTE | 2017-12-12 21:51 | P.PN ---
Date of Service: 12/12/17 Vital Signs Temp Pulse Resp BP Pulse Ox 98.2 F 67 20 141/63 H 98 12/12/17 12:00 12/12/17 12:00 12/12/17 12:00 12/12/17 12:00 12/12/17 12:00 Assessment/ Plan: Nephrology. Confusion this morning. CPS stable without CP or SOB. No acute events overnight. Vitals, medications, blood work and imaging reviewed in the chart. NAD. Obese. MMM. Neck supple. CTA. RRR. Soft Abd. No C/C/E. No rash. AAO. Normal speech. A/ CKD IV, improved. Hypernatremia, worse. Moderate Malnutrition. Anemia in chronic illness. Thrombocytopenia. Sepsis/ Acute cystitis. E.coli. Diastolic CHF, chronic. . P/ Continue current POC and Medications. Agree with abx. Encourage free water intake. No NSAIDs. AM labs. Daily weight.
--- NOTE | 2017-12-13 12:31 | DS ---
Date of Discharge: 12/12/2017 Admitting Diagnoses: 1.Sepsis. 2.Urinary tract infection. 3.Acute on chronic kidney disease stage 4. 4.Metabolic encephalopathy. 5.Congestive heart failure, diastolic, chronic. 6.Aortic stenosis. 7.Chronic anticoagulation. 8.History of deep venous thrombosis. 9.Mixed hyperlipidemia. 10.Hypothyroidism. 11.Obesity. Discharge Diagnoses: 1.Sepsis, resolved. 2.Urinary tract infection, acute cystitis without hematuria secondary to Escherichia coli and Proteu s which is ESBL producing. 3.Acute on chronic kidney disease stage 4. 4.Acute metabolic encephalopathy, improved. 5.Congestive heart failure, chronic diastolic dysfunction. 6.Aortic stenosis. 7.Chronic anticoagulation. 8.History of deep venous thrombosis. 9.Hyperlipidemia. 10.Hypothyroidism, Synthroid. 11.Obesity, BMI 30. 12.Essential hypertension, stable. Hospital Course: The patient is an 87-year-old female, resident of [facility], who comes in with s epsis secondary to urinary tract infection. The patient was started on IV antibiotics. Cultures wer e obtained. Blood culture showed no growth. Urine culture showed E. coli and ESBL producing Proteus . The patient's antibiotics were adjusted. The patient responded well to IV antibiotics and fluid r esuscitation. The patient's white count normalized. Bandemia resolved. She did have elevated INR u terri admission which is now within range. Her Coumadin was restarted. The patient did have some elev ated creatinine above her baseline kidney injury. Creatinine was 4.6, with treatment patient's creat inine improved to 1.9. She was seen by Dr. Baez and Dr. Jamison with Nephrology. The patient otherw ise did well. She had a PICC line placed for long-term IV antibiotics with meropenem due to the ESBL producing Proteus. The patient was then cleared for discharge and was sent home after her sepsis lizama d resolved. Her mental status improved back to baseline. The patient is transferred back to [facility] in stable condition. Activity: Fall precautions. Diet: Renal. Followup: Follow up with primary care physician in 2-3 days. Follow up with freight hustler, Dr. Liberty keys in 2 weeks. Return to ER for worsening condition. Total time spent discharging the patient was 4 2 minute. Medications: As per medication reconciliation list. Physical Examination: General: Awake, alert, oriented x2, in no acute distress. Elderly female, obese, BMI 30. CV: S1, S2. Respiratory: Moving air well bilaterally. Abdomen: Abdomen is soft, nontender, nondistended. Positive bowel sounds. Extremities: No clubbing, cyanosis. Trace pedal edema. Neurologic: Nonfocal. SA/MODL Voice ID: [id number] Report ID: [id number]
== END 2017-12-12 14:42 | DRG 871 ==
LOC: ER 11:53 → ERHOLD 13:19 → 4TH 16:07 → 3RD 12-11 14:53 → 4TH 12-11 14:56
PROVIDERS: ADMIT Family Medicine; ATTEND Family Medicine
PROC: 02HV33Z Insertion of Infusion Device into Superior Vena Cava, Percutaneous Approach (ICD-10-PCS; principal; 2017-12-11)
PROC: 02HV33Z Insertion of Infusion Device into Superior Vena Cava, Percutaneous Approach (ICD-10-PCS; 2017-12-12)
DX: A41.9 Sepsis, unspecified organism (principal); G93.41 Metabolic encephalopathy; I13.0 Hypertensive heart and chronic kidney disease with heart failure and stage 1 through stage 4 chronic kidney disease, or unspecified chronic kidney disease; N18.4 Chronic kidney disease, stage 4 (severe); I50.32 Chronic diastolic (congestive) heart failure; N17.9 Acute kidney failure, unspecified; N30.00 Acute cystitis without hematuria; E87.0 Hyperosmolality and hypernatremia; E44.0 Moderate protein-calorie malnutrition; T82.524A Displacement of infusion catheter, initial encounter; B96.20 Unspecified Escherichia coli [E. coli] as the cause of diseases classified elsewhere; B96.4 Proteus (mirabilis) (morganii) as the cause of diseases classified elsewhere; Z16.12 Extended spectrum beta lactamase (ESBL) resistance; I35.0 Nonrheumatic aortic (valve) stenosis; Z86.718 Personal history of other venous thrombosis and embolism; Z79.01 Long term (current) use of anticoagulants; E78.5 Hyperlipidemia, unspecified; E03.9 Hypothyroidism, unspecified; E66.9 Obesity, unspecified; Z68.30 Body mass index [BMI] 30.0-30.9, adult; D63.8 Anemia in other chronic diseases classified elsewhere; D69.6 Thrombocytopenia, unspecified; Z87.891 Personal history of nicotine dependence; K59.09 Other constipation; R73.03 Prediabetes; Y84.8 Other medical procedures as the cause of abnormal reaction of the patient, or of later complication, without mention of misadventure at the time of the procedure; Y92.230 Patient room in hospital as the place of occurrence of the external cause
CPT/HCPCS: 36415; 71045; 80048; 80053; 80076; 81003; 81015; 83605; 83735; 84100; 84443; 85025; 85610; 87040; 87070; 87077; 87086; 87088; 87186; 87205; 93005; 96374; 96375; 97163; 99285; J0696; J7030